=== PATIENT | female | born 1950 | race Caucasian/White ===

== ENCOUNTER 2016-12-24 21:46 | Inpatient (IN) ==
[2016-12-24] MEDS ORDERED: Ipratropium/Albuterol Neb 3 ML IH ONE (21:47)
[2016-12-24] MEDS ORDERED: methylPREDNISolone 125 MG/2 ML VIAL IVP ONE (21:47)
--- NOTE | 2016-12-24 21:51 | Emergency Department Note ---
Disposition Clinical Impression: Acute exacerbation of chronic obstructive airways disease Disposition: Admitted As Inpatient Condition: Good Referrals: Unassigned,Provider [Non-Partnered Physician] - Forms: ED Satisfaction Letter Time of Disposition: 23:18 SOB HPI - General Chief Complaint: ED Shortness of Breath/Dyspnea Stated Complaint: MARTHA Time Seen by Provider: 12/24/16 21:47 Source: patient, EMS Mode of arrival: EMS Limitations: no limitations Nursing Notes Reviewed: Yes Vital Signs Reviewed: Yes - History of Present Illness 66-year-old with a history COPD comes in complaining of increasing shortness of breath. Patient states symptoms began about 3 days ago. Patient states she has had a cough and congestion. Pt Subjective Complaint: shortness of breath, cough Onset (ago): day(s) (3) Context: recent illness Severity: moderate Consistency/Duration: constant Improves with: nothing Worsens with: nothing Known history of: COPD Associated symptoms: Reports: cough, wheezing Treatment prior to arrival: oxygen Cough present: Yes Cough Description: Involuntary Cough Frequency: Intermittent - Related Data Home Medications Medication Instructions Recorded Confirmed Gabapentin [Neurontin] 300 mg PO TID 04/27/15 07/28/15 Lisinopril [Zestril] 5 mg PO AD 04/27/15 07/28/15 Metformin [Glucophage] 1,000 mg PO BID 05/16/15 07/28/15 Previous Rx's Medication Instructions Recorded Ipratropium/Albuterol Neb [Duoneb] 3 ml IH Q6HR PRN #40 vial.neb 04/28/15 Budesonide/Formoterol 160/4.5 2 puff IH BIDR #5 inhaler 05/18/15 [Symbicort] Tiotropium [Spiriva] 18 mcg IH 0700 #30 capsule 05/18/15 GlipiZIDE XL (24 HR) [Glucotrol XL] 2.5 mg PO DAILY #30 tab.er.24 07/30/15 GuaiFENesin ER [Mucinex] 600 mg PO BID PRN #30 tbbp.12hr 07/30/15 Levofloxacin [Levaquin] 750 mg PO DAILY #7 tablet 07/30/15 predniSONE [PredniSONE] 10 mg PO DAILY #40 tablet 07/30/15 Guaifenesin [Mucinex] 600 mg PO BID PRN #30 tab.er.12h 08/16/15 Allergies Allergy/AdvReac Type Severity Reaction Status Date / Time No Known Allergies Allergy Verified 04/27/15 02:33 All systems ED: reviewed and negative except as stated. Constitutional: Denies: fever, chills, weakness, weight change Eyes: Denies: eye pain, eye discharge, vision change ENT ED: Denies: ear pain, throat pain, dental pain, hearing loss, epistaxis, congestion, dysphagia Cardiovascular: Denies: chest pain, palpitations, dyspnea on exertion, edema, syncope Respiratory: Reports: cough, dyspnea, wheezes. Denies: hemoptysis, stridor Gastrointestinal: Denies: abdominal pain, nausea, vomiting, diarrhea, constipation, hematemesis, melena, hematochezia Genitourinary: Denies: dysuria, frequency, hematuria, discharge Musculoskeletal: Denies: back pain, neck pain, arthralgia, myalgia Integumentary: Denies: rash, abrasion, lesions Neurological: Denies: headache, weakness, numbness, paresthesias, confusion, abnormal gait, vertigo Psychiatric: Denies: anxiety, depression, suicidal thoughts, homicidal thoughts , auditory hallucinations, visual hallucinations Endocrine: Denies: fatigue Hematological/Lymphatic: Denies: easy bleeding, easy bruising Allergic/Immunologic: Denies: facial swelling, urticaria Past Medical History - Past Medical History Medical history: Reports: COPD, diabetes, hyperlipidemia, hypertension, peripheral artery disease, renal disease, other Surgical history: Reports: , cataract, other Psychiatric history: Reports: no psych history - Social History Smoking Status: Former smoker (> 50 pack-year smoking history. Per patient, she has been quitted for almost 5 months.) Smokeless Tobacco Status: No Alcohol use: Reports: none Drug use: Reports: none Physical Exam - General Limitations: no limitations General appearance: alert, in no apparent distress - Head Head exam: atraumatic, normocephalic, normal inspection - Eye Eye exam: Present: normal appearance, PERRL, EOMI - ENT ENT exam: normal exam, normal oropharynx, mucous membranes moist - Neck Neck exam: Present: normal inspection, full ROM, trachea midline - Chest Chest inspection: Present: normal inspection, symmetric chest wall rise - Respiratory Respiratory exam: Present: wheezes, accessory muscle use - Cardiovascular Cardiovascular exam: Present: regular rate, normal rhythm, normal heart sounds - Abdominal Exam Abdominal exam: Present: soft, Non-Tender. Absent: tenderness, distention, guarding, rebound, rigidity - Extremities Exam Extremities exam: Present: normal inspection, full ROM. Absent: tenderness, pedal edema - Expanded Lower Extremity Exam Neurovascular/Tendon exam: Absent: motor deficit, sensory deficit, tendon deficit Gait: observed and normal - Back Exam Back exam: Present: normal inspection, full ROM. Absent: tenderness - Neurological Exam Neurological exam: Present: alert, oriented X3 - Psychiatric Psychiatric exam: Present: normal affect, normal mood - Skin Skin exam: Present: warm, dry, intact, normal color Course - Reevaluation(s) Reevaluation #1: 66-year-old with COPD who comes in with increasing shortness breath the last 3 days. Workup here chest x-ray showed nonammonia they were concerned with some pulmonary congestion. However the BNP was negative. Patient will be admitted for persistent symptoms. She is requiring oxygen to maintain her saturation she is not on oxygen at home. Time: 23:16 - Consultations Consultation #1: Discussed with , admit. Time: 23:17 Vital Signs Temperature 99.3 F 12/24/16 21:47 Pulse Rate 114 12/24/16 21:47 Respiratory Rate 22 12/24/16 21:47 Blood Pressure 148/72 12/24/16 21:47 O2 Sat by Pulse Oximetry 88 12/24/16 21:47 Temperature 99.3 F 12/24/16 21:47 Pulse Rate 109 12/24/16 22:20 Respiratory Rate 26 12/24/16 22:20 Blood Pressure 163/73 12/24/16 22:20 O2 Sat by Pulse Oximetry 97 12/24/16 22:20 Oxygen Delivery Oxygen Delivery Nasal Cannula Shortness of Breath/Dyspnea - Lab Data Lab results reviewed: Yes I reviewed the patient's lab results. Result diagrams: 12/24/16 22:12 12/24/16 22:12 Lab Results 12/24/16 12/24/16 12/24/16 Range/Units 22:12 22:12 22:12 WBC 9.0 (4.3-11.1) K/mcL RBC 5.00 H (3.82-4.97) M/mcL Hgb 14.1 (11.5-15.4) g/dL Hct 45.0 H (35.3-44.9) % MCV 90.0 (83.0-100.0) fL MCH 28.2 (28.0-33.3) pg MCHC 31.3 L (31.6-35.5) g/dL RDW 13.7 (11.5-14.5) % Plt Count 195 (140-400) K/mcL MPV 10.9 (9.4-12.4) fL Immature Gran % 0.3 (0-4) % Seg Neutrophils % 66.1 % Lymphocytes % 18.3 % Monocytes % 8.6 % Eosinophils % 6.1 % Basophils % 0.6 % Neutrophils # 5.9 (1.6-8.9) K/mcL Lymphocytes # 1.6 (0.6-4.6) K/mcL Monocytes # 0.8 (0.0-1.3) K/mcL Eosinophils # 0.6 (0.0-0.6) K/mcL Basophils # 0.1 (0.0-0.2) K/mcL Sodium 138 (136-145) mEq/L Potassium 4.5 (3.5-4.5) mEq/L Chloride 107 (98-109) mEq/L Carbon Dioxide 19 (19-29) mEq/L BUN 22 H (7-20) mg/dL Creatinine 0.98 (0.57-1.11) mg/dL Est GFR ( Amer) > 60 (> 60) Est GFR (Non-Af Amer) 57 L (> 60) BUN/Creatinine Ratio 22 (6-26) Glucose 134 H (70-99) mg/dL Calculated Osmolality 291 (280-300) Calcium 10.1 (8.6-10.8) mg/dL Troponin I 0.01 (0-0.03) ng/mL B-Natriuretic Peptide (0-100) pg/mL 12/24/16 Range/Units 22:12 WBC (4.3-11.1) K/mcL RBC (3.82-4.97) M/mcL Hgb (11.5-15.4) g/dL Hct (35.3-44.9) % MCV (83.0-100.0) fL MCH (28.0-33.3) pg MCHC (31.6-35.5) g/dL RDW (11.5-14.5) % Plt Count (140-400) K/mcL MPV (9.4-12.4) fL Immature Gran % (0-4) % Seg Neutrophils % % Lymphocytes % % Monocytes % % Eosinophils % % Basophils % % Neutrophils # (1.6-8.9) K/mcL Lymphocytes # (0.6-4.6) K/mcL Monocytes # (0.0-1.3) K/mcL Eosinophils # (0.0-0.6) K/mcL Basophils # (0.0-0.2) K/mcL Sodium (136-145) mEq/L Potassium (3.5-4.5) mEq/L Chloride (98-109) mEq/L Carbon Dioxide (19-29) mEq/L BUN (7-20) mg/dL Creatinine (0.57-1.11) mg/dL Est GFR ( Amer) (> 60) Est GFR (Non-Af Amer) (> 60) BUN/Creatinine Ratio (6-26) Glucose (70-99) mg/dL Calculated Osmolality (280-300) Calcium (8.6-10.8) mg/dL Troponin I (0-0.03) ng/mL B-Natriuretic Peptide < 10 (0-100) pg/mL - Radiology Data Radiology results reviewed: Yes I reviewed the patient's radiology results. Chest X-Ray 12/24/16 21:47 IMPRESSION: 1. Pulmonary vascular congestion. 2. Trace bilateral effusions. D/ / Dread Mathew MD / Dread Mathew MD Interpreting Provider: Dread Mathew MD - EKG Data EKG attestation: Yes I reviewed and interpreted this EKG. EKG shows normal: Reports: sinus rhythm Rate: Reports: tachycardia Rhythm: Reports: NSR Interpretation: Reports: no acute changes
[2016-12-24 22:20] LABS: Basophils # 0.1 K/mcL (0.0-0.2); Basophils % 0.6 %; Eosinophils # 0.6 K/mcL (0.0-0.6); Eosinophils % 6.1 %; Hemoglobin 14.1 g/dL (11.5-15.4); Immature Granulocytes % 0.3 % (0-4); Lymphocytes # 1.6 K/mcL (0.6-4.6); Lymphocytes % 18.3 %; Mean Corpuscular HGB Conc 31.3 g/dL (31.6-35.5); Mean Corpuscular Hemoglobin 28.2 pg (28.0-33.3); Mean Platelet Volume 10.9 fL (9.4-12.4); Monocytes # 0.8 K/mcL (0.0-1.3); Monocytes % 8.6 %; Neutrophils # 5.9 K/mcL (1.6-8.9); Platelet Count 195 K/mcL (140-400); Red Cell Distribution Width 13.7 % (11.5-14.5); Segmented Neutrophils % 66.1 %
[2016-12-24 22:32] LABS: BUN/Creatinine Ratio 22 (6-26); Blood Urea Nitrogen 22 mg/dL (7-20); Calcium 10.1 mg/dL (8.6-10.8); Carbon Dioxide 19 mEq/L (19-29); Chloride 107 mEq/L (98-109); Glucose 134 mg/dL (70-99); Osmolality,Calculated 291 (280-300); Potassium 4.5 mEq/L (3.5-4.5); Sodium 138 mEq/L (136-145); eGFR For African Americans > 60 (> 60); eGFR For Non-African Americans 57 (> 60)
[2016-12-25] MEDS ORDERED: Naloxone 0.4 MG/ML INJ IVP PRN (02:38)
[2016-12-25] MEDS ORDERED: Ipratropium/Albuterol Neb 3 ML IH ONE (02:40)
[2016-12-25] MEDS ORDERED: Dextrose Gel 15 GM PO PRN ×2 (02:42)
[2016-12-25] MEDS ORDERED: *HR* Dextrose 50 % in Water (Syg) 50 ML SYRINGE IVP PRN (02:42)
[2016-12-25] MEDS ORDERED: D5% in Water 1,000 ML IVC PRN (02:42)
--- NOTE | 2016-12-25 02:46 | Internal Med History&Physical ---
Date of Encounter: 12/25/16 Time of Encounter: 02:00 Assessment and Plan (1) Acute exacerbation of chronic obstructive airways disease Current visit: Yes Status: Acute Treat with Solu-Medrol, levofloxacin, Duonebs and Mucinex (2) Acute respiratory failure with hypoxemia Current visit: Yes Status: Acute Likely due to acute exacerbation of COPD. Supplement oxygen and treat COPD exacerbation. Patient will need resting and walking pulse oximetry prior to discharge. (3) Pulmonary vascular congestion Current visit: Yes Status: Acute Reported on chest x-ray. BNP is not elevated. Will obtain echocardiogram (4) HTN (hypertension) Current visit: Yes Status: Chronic Continue home medications Qualifiers: Hypertension type: essential hypertension Qualified Code(s): I10 - Essential (primary) hypertension (5) Type 2 diabetes mellitus Current visit: Yes Status: Chronic Hold metformin. Start sliding scale insulin. 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 Does not want nicotine patches. Advised smoking cessation Internal Medicine - H&P: HPI Chief complaint: Shortness of breath Admitted From: Emergency Dept Plans for Post Hospital Care: Home History of present illness: Ms. Gavin is a 66 year old female with Past medical history significant for COPD and diabetes presents with three-day history of worsening shortness of breath. Prior to Presentation, she was short of breath at rest and on talking. She reports cough with greenish expectation. No hemoptysis. No chest pain, fever, chills, nausea, vomiting, abdominal pain, dysuria, hematuria or bowel problems. She was evaluated in the emergency department and was thought to have acute exacerbation of COPD and acute respiratory failure requiring oxygen ( pulse ox 88% on room air in the ER). She is admitted to the hospitalist service for further workup and management. Past Med Surg Social Fam HX - Past Medical History Medical history: COPD, diabetes, hyperlipidemia, hypertension, peripheral artery disease, renal disease, other Psychiatric history: no psych history - Past Surgical History Surgical History: , cataract, other - Social History Smoking Status: Current some day smoker Packs per day: 2 cigarettes Smokeless Tobacco Status: No Alcohol use: none Drug use: none - Family History Father Adopted: No Family Member Ethnicity: Non- Living Status: Age at : 45 Cause of : [place] Hx Family Cardiac Disorders: Yes ([place] at age 45) Hx Family Respiratory Disorders: Yes Hx Family Cancer: Yes Hx Family GI Disorders: No Hx Family Endocrine Disorder: Yes Hx Family Neuromuscular Disorders: No Hx Family Neurologic Disorders: No Hx Family HEENT Disorders: No Hx Family Autoimmune Disorders: No Brother Age at : 65 Cause of : [place] Hx Family Cardiac Disorders: Yes (CABG at age 52) Internal Medicine - H&P: Meds Gabapentin [Neurontin] 300 mg PO TID 04/27/15 [History] Lisinopril [Zestril] 5 mg PO AD 04/27/15 [History] Ipratropium/Albuterol Neb [Duoneb] 3 ml IH Q6HR PRN #40 vial.neb 04/28/15 [Rx] Metformin [Glucophage] 1,000 mg PO BID 05/16/15 [History] Budesonide/Formoterol 160/4.5 [Symbicort] 2 puff IH BIDR #5 inhaler 05/18/15 [Rx ] Allergies No Known Allergies Allergy (Verified 04/27/15 02:33) All Systems PM: A 10-system review of systems was performed and is negative for pertinent findings except as documented above in the HPI. - Constitutional Vitals: Temp Pulse Resp BP Pulse Ox 97.7 F 111 20 113/75 90 12/25/16 01:11 12/25/16 01:11 12/25/16 01:11 12/25/16 01:11 12/25/16 01:11 Exam: General: Not in acute distress at the time of my evaluation HEENT: Oral mucosa is moist. No conjunctival palor or scleral icterus Neck: No obvious neck swellings Lungs: Bilateral wheeze present Cardiac: Regular rate and rhythm. No significant murmurs Abdomen: Soft, non tender. Bowel sounds present Genitourinary: No ramires catheter Neurological: Alert and oriented. No gross localizing deficits Psych: Not aggressive or agitated Extremities: no significant leg edema Skin: No generalized rash Internal Med - H&P Results - Labs CBC & Chem 7: 12/24/16 22:12 12/24/16 22:12 - EKG Data -: EKG Interpreted by Myself EKG shows normal: sinus rhythm Rate: tachycardia - Impressions ITS Impressions Chest X-Ray 12/24/16 21:47 IMPRESSION: 1. Pulmonary vascular congestion. 2. Trace bilateral effusions. D/ / Dread Mathew MD / Dread Mathew MD Interpreting Provider: Dread Mathwe MD
[2016-12-25] MEDS: levoFLOXacin 750 MG TABLET PO SCH (03:20)
[2016-12-25] MEDS: Ipratropium/Albuterol Neb 3 ML IH SCH ×4 (04:05→22:22)
[2016-12-25] MEDS: *HR* Enoxaparin 40 MG/0.4 ML SYRINGE SQ SCH (05:53)
[2016-12-25] MEDS ORDERED: Furosemide 20 MG/2 ML VIAL IVP ONE (06:00)
[2016-12-25] MEDS: MethylPREDNISolone 40 MG/ML VIAL IVP SCH ×2 (08:29→17:25)
[2016-12-25] MEDS: Insulin LISPRO 300 UNITS/3 ML VIAL SQ SCH ×4 (08:29→20:23)
--- NOTE | 2016-12-25 10:12 | Event Note ---
<Dread Lugo G - Last Filed: 12/25/16 13:30> Date of Encounter: 12/25/16 Time of Encounter: 10:07 Patient seen and examined at [facility]. Admitted overnight for COPD exacerbation. Patient reports feeling slightly better this morning. Still having dyspnea, particularly when lying flat. Reports non-productive cough. VSS, O2 saturation 94% on 2L No acute distress Heart RRR no m/r/g Lungs diffuse wheezes, no rales or rhonci COPD exacerbation: Mild improvement since admission, continue scheduled duonebs , IV steroids, abx. Add symbicort. Patient reports orthopnea, no clinical evidence of HF exacerbation. Patient received one dose of lasix with minimal change. Echo pending <Brandon Connor P - Last Filed: 12/25/16 17:37> Date of Encounter: 12/25/16 I examined this patient and my medical decision-making was reviewed with the [employer] MODEL/PA/Advanced Practice Nurse/Resident Physician. I agree with the documented findings, disposition and treatment plan as described except to the extent set forth below.
--- NOTE | 2016-12-25 16:24 | Electrocardiograph Report ---
[place] [id number] Test Date: 2016-12-24 Pat Name: Gilberto Gavin Department: 102 Room: 3B Gender: F Differential Repairer: Sebastián : 1950 Requested By: Travon Chiu Order Number: [id number] Reading MD: Shalonda Chua Measurements Intervals [place] Rate: 117 P: 63 NC: 124 QRS: 65 QRSD: 90 T: 66 QT: 305 QTc: 374 Interpretive Statements SINUS TACHYCARDIA ABNORMAL RHYTHM ECG Electronically Signed On 12-25-2016 16:22:54 EDT by Shalonda Chua
[2016-12-25] MEDS: Gabapentin 300 MG CAPSULE PO SCH (21:52)
[2016-12-25] MEDS: Budesonide/Formoterol 160/4.5 MDI IH SCH (22:23)
[2016-12-26] MEDS: MethylPREDNISolone 40 MG/ML VIAL IVP SCH ×3 (00:30→17:48)
[2016-12-26] MEDS: Ipratropium/Albuterol Neb 3 ML IH SCH ×4 (04:13→22:47)
[2016-12-26] MEDS: *HR* Enoxaparin 40 MG/0.4 ML SYRINGE SQ SCH (05:26)
[2016-12-26 07:15] LABS: Basophils % 0.2 %; Hematocrit 42.5 % (35.3-44.9); Hemoglobin 13.6 g/dL (11.5-15.4); Immature Granulocytes % 0.5 % (0-4); Lymphocytes # 0.7 K/mcL (0.6-4.6); Lymphocytes % 12.4 %; Mean Corpuscular Hemoglobin 28.4 pg (28.0-33.3); Mean Corpuscular Volume 88.7 fL (83.0-100.0); Mean Platelet Volume 11.4 fL (9.4-12.4); Monocytes # 0.2 K/mcL (0.0-1.3); Monocytes % 4.1 %; Neutrophils # 4.6 K/mcL (1.6-8.9); Platelet Count 196 K/mcL (140-400); Red Blood Count 4.79 M/mcL (3.82-4.97); Red Cell Distribution Width 13.3 % (11.5-14.5); Segmented Neutrophils % 82.8 %
[2016-12-26 07:30] LABS: BUN/Creatinine Ratio 31 (6-26); Blood Urea Nitrogen 31 mg/dL (7-20); Calcium 9.9 mg/dL (8.6-10.8); Carbon Dioxide 22 mEq/L (19-29); Chloride 105 mEq/L (98-109); Glucose 208 mg/dL (70-99); Osmolality,Calculated 299 (280-300); Potassium 4.7 mEq/L (3.5-4.5); Sodium 138 mEq/L (136-145); eGFR For African Americans > 60 (> 60); eGFR For Non-African Americans 56 (> 60)
[2016-12-26] MEDS: levoFLOXacin 750 MG TABLET PO SCH (09:07)
[2016-12-26] MEDS: Gabapentin 300 MG CAPSULE PO SCH ×2 (09:08→21:40)
[2016-12-26] MEDS: Insulin LISPRO 300 UNITS/3 ML VIAL SQ SCH ×5 (09:08→21:40)
[2016-12-26] MEDS: Budesonide/Formoterol 160/4.5 MDI IH SCH ×2 (10:53→22:47)
--- NOTE | 2016-12-26 16:22 | Internal Med Progress Note ---
Date of Encounter: 12/26/16 Time of Encounter: 09:15 - Assessment and plan (1) Acute exacerbation of chronic obstructive airways disease Current Visit: No Status: Resolved Assessment and plan: Improving, continue Duonebs, Symbicort, Solumedrol, Levaquin (2) Acute respiratory failure with hypoxemia Current Visit: Yes Status: Acute Assessment and plan: secondary to COPD exacerbation, improving (3) HTN (hypertension) Current Visit: Yes Status: Chronic Assessment and plan: controlled, continue home meds Qualifiers: Hypertension type: essential hypertension Qualified Code(s): I10 - Essential (primary) hypertension (4) Tobacco abuse Current Visit: Yes Status: Chronic (5) Type 2 diabetes mellitus Current Visit: Yes Status: Chronic Assessment and plan: hyperglycemia, sliding scale Qualifiers: Diabetes mellitus complication status: without complication Diabetes mellitus fdc insulin use: without intermediate 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 Not in any distress. Tolerating oral diet. No fever. Feels better. Denies chest pain or shortness of breath. No other acute events or complaints. - Constitutional Vitals: Temp Pulse Resp BP Pulse Ox 98.2 F 86 18 127/65 96 12/26/16 15:49 12/26/16 15:49 12/26/16 15:49 12/26/16 15:49 12/26/16 15:49 General appearance: Present: cooperative, A&O X 3, no acute distress, answers questions appropriately - Head Head exam: Present: atraumatic - Neck Neck exam general surgery: Present: supple - Respiratory Respiratory exam: Present: wheezes (b/l extensive). Absent: rhonchi Additional comments: good air entry b/l - Cardiovascular Cardiovascular exam: Present: RRR, +S1, +S2 - GI/Abdominal GI/Abdominal exam: Present: soft. Absent: guarding, tenderness - Neurological Exam Neurological exam: Present: alert, oriented X3, no focal deficits Internal Medicine: Result - Labs CBC & Chem 7: 12/26/16 06:18 12/26/16 06:18 Labs: Short CBC 12/26/16 Range/Units 06:18 WBC 5.6 (4.3-11.1) K/mcL Hgb 13.6 (11.5-15.4) g/dL Hct 42.5 (35.3-44.9) % Plt Count 196 (140-400) K/mcL Neutrophils # 4.6 (1.6-8.9) K/mcL BMP 12/26/16 06:18 Sodium 138 Potassium 4.7 H Chloride 105 Carbon Dioxide 22 BUN 31 H Creatinine 0.99 Glucose 208 H Calcium 9.9 Consult Discharge Plan - Plan Referrals: Leroy Roman MD [Primary Care Provider] -
[2016-12-27] MEDS: MethylPREDNISolone 40 MG/ML VIAL IVP SCH ×2 (00:34→09:21)
[2016-12-27] MEDS: Ipratropium/Albuterol Neb 3 ML IH SCH (04:18)
[2016-12-27 06:30] LABS: Basophils % 0.1 %; Hematocrit 40.8 % (35.3-44.9); Hemoglobin 13.3 g/dL (11.5-15.4); Immature Granulocytes % 0.7 % (0-4); Lymphocytes % 13.8 %; Mean Corpuscular HGB Conc 32.6 g/dL (31.6-35.5); Mean Corpuscular Hemoglobin 28.7 pg (28.0-33.3); Mean Corpuscular Volume 88.1 fL (83.0-100.0); Mean Platelet Volume 11.3 fL (9.4-12.4); Monocytes # 0.2 K/mcL (0.0-1.3); Monocytes % 3.2 %; Neutrophils # 5.9 K/mcL (1.6-8.9); Platelet Count 214 K/mcL (140-400); Red Blood Count 4.63 M/mcL (3.82-4.97); Red Cell Distribution Width 13.6 % (11.5-14.5); Segmented Neutrophils % 82.2 %
[2016-12-27 06:50] LABS: BUN/Creatinine Ratio 32 (6-26); Blood Urea Nitrogen 34 mg/dL (7-20); Carbon Dioxide 22 mEq/L (19-29); Chloride 107 mEq/L (98-109); Glucose 192 mg/dL (70-99); Osmolality,Calculated 301 (280-300); Potassium 4.8 mEq/L (3.5-4.5); Sodium 139 mEq/L (136-145); eGFR For African Americans > 60 (> 60); eGFR For Non-African Americans 52 (> 60)
[2016-12-27] MEDS: *HR* Enoxaparin 40 MG/0.4 ML SYRINGE SQ SCH (07:34)
[2016-12-27 08:17] VITALS: BP 151/71
--- NOTE | 2016-12-27 08:21 | Discharge Summary ---
<Dread Lugo - Last Filed: 12/27/16 08:56> Date of Encounter: 12/27/16 Time of Encounter: 08:16 - Discharge Diagnosis (1) Acute exacerbation of chronic obstructive airways disease Priority: Primary Status: Acute (2) Acute respiratory failure with hypoxemia Priority: Primary Status: Resolved (3) HTN (hypertension) Priority: Secondary Status: Chronic Qualifiers: Hypertension type: essential hypertension Qualified Code(s): I10 - Essential (primary) hypertension (4) Type 2 diabetes mellitus Priority: Secondary Status: Chronic Qualifiers: Diabetes mellitus complication status: without complication Diabetes mellitus buttermaker insulin use: without snf use Qualified Code(s): E11.9 - Type 2 diabetes mellitus without complications - Discharge Medications Prescriptions: levoFLOXacin [Levofloxacin] 750 mg PO DAILY #3 tablet predniSONE [PredniSONE] See Taper PO DAILY #30 tablet Home Medications: Gabapentin [Neurontin] 600 mg PO BID 04/27/15 [History] Lisinopril [Zestril] 5 mg PO AD 04/27/15 [History] Ipratropium/Albuterol Neb [Duoneb] 3 ml IH Q6HR PRN #40 vial.neb 04/28/15 [Rx] Metformin [Glucophage] 1,000 mg PO BID 05/16/15 [History] Budesonide/Formoterol 160/4.5 [Symbicort] 2 puff IH BIDR #5 inhaler 05/18/15 [Rx ] Albuterol Neb [AccuNeb] 1.25 mg IH QID PRN 12/25/16 [History] Atorvastatin Calcium [Lipitor] 20 mg PO HS 12/25/16 [History] Roflumilast [Daliresp] 500 mcg PO DAILY 12/25/16 [History] levoFLOXacin [Levofloxacin] 750 mg PO DAILY #3 tablet 12/27/16 [Rx] predniSONE [PredniSONE] See Taper PO DAILY #30 tablet 12/27/16 [Rx] Allergies/Adverse Reactions: Allergies No Known Allergies Allergy (Verified 04/27/15 02:33) Procedures/tests Complete & Pending: Procedures Performed prior 72 hours Category Date Time Status EV echocardiogram Routine Y 12/25/16 02:49 Completed Date of admission: 12/25/16 02:38 Primary care physician: Leroy Roman MD Discharging clinician: Dread Lugo Anticipated date of discharge: 12/27/16 - Patient Status Disposition: Home, Self-Care Condition: Good Functional capacity at discharge: independent ambulation Overall status at discharge: patient is progressing back to baseline - Discharge Instructions Instructions: Diabetes Mellitus Type 2 in Adults (DC), Chronic Obstructive Pulmonary Disease (DC) Follow Up With: Leroy au MD [Primary Care Provider] - 01/08/17 11:00 am Additional Instructions: Please follow up with your primary care physician as scheduled. Please resume your home medications. Please take your antibiotic, levofloxacin, until gone. Please taper off her steroids, prednisone, as directed. We would highly recommend that you quit smoking. Please return for any new or worsening symptoms. - Diet and Activity Activity: increase activity as tolerated Diet: advance to your usual diet Interval History: Patient seen and examined at bedside. Patient states she feels back to normal today. Denies any shortness of breath, cough. Patient has not worn oxygen for the last 24 hours. Hospital course: Ms. Gavin is a 66 year old female with history of COPD, type 2 diabetes presents with shortness of breath. Patient also had a cough. Patient was exquisitely wheezy and tight on exam and deemed to be in a COPD exacerbation. Patient was treated with antibiotics, IV steroids, bronchodilators. Patient initially required oxygen supplementation but improved greatly over her hospital course and did not require oxygenation in the past 24 hours prior to discharge. Patient will be discharged home in stable condition. - Time Spent with Patient Total time spent providing and/or coordinating discharge services: - Constitutional Vitals: Temp Pulse Resp BP Pulse Ox 98 F 70 16 122/68 92 12/27/16 03:08 12/27/16 03:08 12/27/16 04:21 12/27/16 03:08 12/27/16 04:21 General appearance: Present: cooperative, A&O X 3, no acute distress, answers questions appropriately - Respiratory Respiratory exam: Present: wheezes (Diffuse). Absent: rales, respiratory distress, rhonchi, tachypnea - Cardiovascular Cardiovascular exam: Present: RRR. Absent: gallop, rubs, systolic murmur - GI/Abdominal GI/Abdominal exam: Present: normal bowel sounds, soft. Absent: distended, tenderness - Extremities Exam Extremities exam: Present: warm. Absent: pedal edema, tenderness - Neurological Exam Neurological exam: Present: alert, CN II-XII intact, oriented X3, no focal deficits <Av Fitzgerald - Last Filed: 12/27/16 14:56> Date of Encounter: 12/27/16 - Discharge Diagnosis (1) Acute respiratory failure with hypoxemia Status: Resolved (2) Acute exacerbation of chronic obstructive airways disease Status: Acute (3) HTN (hypertension) Status: Chronic Qualifiers: Hypertension type: essential hypertension Qualified Code(s): I10 - Essential (primary) hypertension (4) Type 2 diabetes mellitus Status: Chronic Qualifiers: Diabetes mellitus complication status: with hyperglycemia Diabetes mellitus buttermaker insulin use: without buttermaker use Qualified Code(s): E11.65 - Type 2 diabetes mellitus with hyperglycemia (5) HLD (hyperlipidemia) Priority: Secondary Status: Chronic Qualifiers: Hyperlipidemia type: mixed hyperlipidemia Qualified Code(s): E78.2 - Mixed hyperlipidemia (6) CKD (chronic kidney disease), stage II Priority: Secondary Status: Chronic (7) Tobacco abuse Priority: Secondary Status: Chronic Procedures/tests Complete & Pending: Procedures Performed prior 72 hours Category Date Time Status EV echocardiogram Routine Y 12/25/16 02:49 Completed Date of admission: 12/25/16 02:38 Primary care physician: Leroy Roman MD Hospital course: Ms. Gavin is a 66 year old female - Time Spent with Patient Total time spent providing and/or coordinating discharge services: 38min - Constitutional Vitals: Temp Pulse Resp BP Pulse Ox 98.1 F 78 14 151/71 92 12/27/16 08:12 12/27/16 08:12 12/27/16 08:12 12/27/16 08:12 12/27/16 08:12 - Attending Attestation I examined this patient and my medical decision-making was reviewed with the Resident Physician on 12/27/16. I agree with the documented findings, disposition and treatment plan as described except to the extent set forth below. Ms. Gavin is doing better today. She is off oxygen and tolerating PO meds. She has been up and around without difficulty. She is afebrile with stable vitals. Exam Alert. Comfortable Heart reg Scant end exp wheeze Plan D/C home today.
[2016-12-27] MEDS: Gabapentin 300 MG CAPSULE PO SCH (09:21)
[2016-12-27] MEDS: levoFLOXacin 750 MG TABLET PO SCH (09:21)
== END 2016-12-27 10:40 | disposition home or self-care (01) | DRG 190 ==
LOC: 3BNU 21:46 → EMEROO 21:46 → 3BNU 12-25 00:53 → SUATTDRO 12-25 02:38 → 2ANU 12-27 02:04
PROVIDERS: ADMIT Internal Medicine; ATTEND Internal Medicine

== ENCOUNTER 2017-06-09 22:08 | Observation (INO) ==
[2017-06-09] MEDS ORDERED: predniSONE 20 MG TABLET PO ONE (22:16)
[2017-06-09] MEDS ORDERED: Ipratropium/Albuterol Neb 3 ML IH ONE (22:16)
[2017-06-09 22:23] LABS: Basophils % 0.4 %; Eosinophils # 0.4 K/mcL (0.0-0.6); Eosinophils % 3.4 %; Hematocrit 42.5 % (35.3-44.9); Hemoglobin 13.8 g/dL (11.5-15.4); Immature Granulocytes % 0.4 % (0-4); Mean Corpuscular HGB Conc 32.5 g/dL (31.6-35.5); Mean Corpuscular Hemoglobin 29.1 pg (28.0-33.3); Mean Corpuscular Volume 89.7 fL (83.0-100.0); Mean Platelet Volume 11.5 fL (9.4-12.4); Monocytes # 0.6 K/mcL (0.0-1.3); Monocytes % 5.5 %; Platelet Count 197 K/mcL (140-400); Red Blood Count 4.74 M/mcL (3.82-4.97); Red Cell Distribution Width 13.7 % (11.5-14.5); Segmented Neutrophils % 81.3 %
[2017-06-09 22:38] LABS: BUN/Creatinine Ratio 14 (6-26); Blood Urea Nitrogen 13 mg/dL (7-20); Calcium 10.2 mg/dL (8.6-10.8); Carbon Dioxide 21 mEq/L (19-29); Chloride 108 mEq/L (98-109); Glucose 159 mg/dL (70-99); Osmolality,Calculated 291 (280-300); Potassium 4.3 mEq/L (3.5-4.5); Sodium 139 mEq/L (136-145); eGFR For African Americans > 60 (> 60); eGFR For Non-African Americans > 60 (> 60)
--- NOTE | 2017-06-09 22:40 | Emergency Department Note ---
Disposition Clinical Impression: COPD exacerbation Disposition: Admitted As Inpatient Condition: Fair Time of Disposition: 00:10 SOB HPI - General Chief Complaint: ED Shortness of Breath/Dyspnea Stated Complaint: alex Nursing Notes Reviewed: Yes Vital Signs Reviewed: Yes - History of Present Illness 66-year-old female presents to the emergency department with what she thinks is an exacerbation of her COPD. Patient's worsening cough with production of green sputum over the last week. Patient stated he started having more shortness of breath this morning. The patient is not currently on any oxygen at home. - Related Data Home Medications Medication Instructions Recorded Confirmed Gabapentin [Neurontin] 600 mg PO BID 04/27/15 12/25/16 Lisinopril [Zestril] 5 mg PO AD 04/27/15 12/25/16 Metformin [Glucophage] 1,000 mg PO BID 05/16/15 12/25/16 Albuterol Neb [AccuNeb] 1.25 mg IH QID PRN 12/25/16 12/25/16 Atorvastatin Calcium [Lipitor] 20 mg PO HS 12/25/16 12/25/16 Roflumilast [Daliresp] 500 mcg PO DAILY 12/25/16 12/25/16 Previous Rx's Medication Instructions Recorded Ipratropium/Albuterol Neb [Duoneb] 3 ml IH Q6HR PRN #40 vial.neb 04/28/15 Budesonide/Formoterol 160/4.5 2 puff IH BIDR #5 inhaler 05/18/15 [Symbicort] levoFLOXacin [Levaquin] 750 mg PO DAILY #3 tablet 12/27/16 predniSONE [PredniSONE] See Taper PO DAILY #30 tablet 12/27/16 Azithromycin [Azithromycin 6-Tab 250 mg PO PER PKG DI #6 tab 04/10/17 Pack] PredniSONE [Deltasone] 20 mg PO DAILY #10 tablet 04/10/17 Allergies Allergy/AdvReac Type Severity Reaction Status Date / Time No Known Allergies Allergy Verified 04/27/15 02:33 All systems ED: reviewed and negative except as stated. Review of Systems: As Per HPI Constitutional: Denies: fever Cardiovascular: Reports: chest pain Respiratory: Reports: cough, dyspnea Gastrointestinal: Denies: abdominal pain Past Medical History - Past Medical History Medical history: Reports: COPD, diabetes, hyperlipidemia, hypertension, peripheral artery disease, renal disease, other Surgical history: Reports: , cataract, other Psychiatric history: Reports: no psych history - Social History Smoking Status: Current some day smoker Smokeless Tobacco Status: No Alcohol use: Reports: none Drug use: Reports: none Physical Exam General: unkempt 66-year-old female 3 L of oxygen via nasal cannula, with a productive wet cough Head: autraumatic, EOMI, no conjuncitval pallor, no scleral icterus, Mouth: oral mucous membranes moist Neck: neck soft, trachea midline Chest:: Equal chest wall rise Lungs: Wheezes and rhonchi throughout, mild respiratory distress Heart: normal heart sounds, normal rate and rhythm, Abdomen: soft, non-tender, no rigidity, no guarding, no rebdound tenderness Lower Extremities: no pedal edema, calves non-tender Integumentary: Skin warm, dry, and intact Neuro: Alert Psych: normal affect, normal mood - General General appearance: alert Course Vital Signs Temperature 98.2 F 06/09/17 22:09 Pulse Rate 121 06/09/17 22:09 Respiratory Rate 22 06/09/17 22:09 Blood Pressure 99/65 06/09/17 22:09 O2 Sat by Pulse Oximetry 94 06/09/17 22:09 Temperature 98.2 F 06/09/17 22:09 Pulse Rate 121 06/09/17 22:09 Respiratory Rate 22 06/09/17 22:20 Blood Pressure 99/65 06/09/17 22:09 O2 Sat by Pulse Oximetry 94 06/09/17 22:20 Oxygen Delivery Oxygen Delivery Nasal Cannula Shortness of Breath/Dyspnea - MDM Narrative Medical decision making narrative: 66-year-old female presents to the emergency department with worsening cough, sputum production, hypoxic on room air. At this time, I will give the patient DuoNeb's, prednisone as I believe she has a COPD exacerbation. Chest X-Ray 06/09/17 22:16 IMPRESSION: Negative portable chest. D/ / Marcelo Gonzalez MD / Marcelo Gonzalez MD Interpreting Provider: Marcelo Gonzalez MD Vital Signs Temperature 98.2 F 06/09/17 22:09 Pulse Rate 121 06/09/17 22:09 Respiratory Rate 22 06/09/17 22:09 Blood Pressure 99/65 06/09/17 22:09 O2 Sat by Pulse Oximetry 94 06/09/17 22:09 Temperature 98.2 F 06/09/17 22:09 Pulse Rate 121 06/09/17 22:09 Respiratory Rate 22 06/09/17 22:20 Blood Pressure 99/65 06/09/17 22:09 O2 Sat by Pulse Oximetry 94 06/09/17 22:20 Oxygen Delivery Oxygen Delivery Nasal Cannula We are doing a chest x-ray, EKG, troponin as well. Chest x-ray does not reveal any evidence of pneumonia. However, due to patient's increasing sputum production, we will either may be a source of bacterial infection. I will give this patient IV Levaquin. Admission was discussed with the patient bedside as she has a new requirement for oxygen, and she does not have any oxygen at home. Admission was discussed with the hospitalist and they agree with the plan. Patient stated that she was feeling a lot better after administration of steroids and DuoNeb's. Patient was tachycardic on arrival, but she had just been administered albuterol. I do not think this is a pulmonary embolus as clinically, the patient had diffuse wheezes and rhonchi throughout, with increasing sputum production and patient specifically stated this feels like a COPD exacerbation for her. - Lab Data Result diagrams: 06/09/17 22:13 06/09/17 22:13 Lab Results 06/09/17 06/09/17 06/09/17 Range/Units 22:13 22:13 22:13 WBC 11.0 (4.3-11.1) K/mcL RBC 4.74 (3.82-4.97) M/mcL Hgb 13.8 (11.5-15.4) g/dL Hct 42.5 (35.3-44.9) % MCV 89.7 (83.0-100.0) fL MCH 29.1 (28.0-33.3) pg MCHC 32.5 (31.6-35.5) g/dL RDW 13.7 (11.5-14.5) % Plt Count 197 (140-400) K/mcL MPV 11.5 (9.4-12.4) fL Immature Gran % 0.4 (0-4) % Seg Neutrophils % 81.3 % Lymphocytes % 9.0 % Monocytes % 5.5 % Eosinophils % 3.4 % Basophils % 0.4 % Neutrophils # 9.0 H (1.6-8.9) K/mcL Lymphocytes # 1.0 (0.6-4.6) K/mcL Monocytes # 0.6 (0.0-1.3) K/mcL Eosinophils # 0.4 (0.0-0.6) K/mcL Basophils # 0.0 (0.0-0.2) K/mcL Sodium 139 (136-145) mEq/L Potassium 4.3 (3.5-4.5) mEq/L Chloride 108 (98-109) mEq/L Carbon Dioxide 21 (19-29) mEq/L BUN 13 (7-20) mg/dL Creatinine 0.92 (0.57-1.11) mg/dL Est GFR ( Amer) > 60 (> 60) Est GFR (Non-Af Amer) > 60 (> 60) BUN/Creatinine Ratio 14 (6-26) Glucose 159 H (70-99) mg/dL Calculated Osmolality 291 (280-300) Calcium 10.2 (8.6-10.8) mg/dL Troponin I 0.02 (0-0.03) ng/mL Attestation Statement - Attestation Attestation: I examined this patient and my medical decision-making was reviewed with the Resident Physician. I agree with the documented findings, disposition and treatment plan as described except to the extent set forth below. Patient to ED with difficulty in breathing. Wheezing. Onset this morning. On hypoxic by EMS. On examination she is in no distress. She does have expiratory wheezing. Plan. Cardiac workup. Nebs and steroids. Requiring oxygen. Likely admission.
[2017-06-09] MEDS ORDERED: Levofloxacin 750 MG/150 ML 750 MG/150 ML BAG IVPB ONE (23:53)
[2017-06-10] MEDS ORDERED: 0.9 % Sodium Chloride 1,000 ML IVC ONE (00:14)
[2017-06-10] MEDS ORDERED: Magnesium Sulfate 2 GM in D5% in Water 100 ML IVPB ONE (00:51)
[2017-06-10] MEDS: Ipratropium/Albuterol Neb 3 ML IH SCH ×7 (01:47→23:34)
[2017-06-10] MEDS ORDERED: Albuterol 2.5 MG/3 ML NEBULIZER IH PRN (02:01)
[2017-06-10] MEDS ORDERED: Ondansetron 4 MG/2 ML VIAL IVP PRN (02:01)
[2017-06-10] MEDS ORDERED: Naloxone 0.4 MG/ML INJ IVP PRN (02:01)
[2017-06-10] MEDS ORDERED: *HR* HYDROcodone/Acet 5/325 mg TABLET PO PRN (02:01)
--- NOTE | 2017-06-10 02:21 | Internal Med History&Physical ---
<Gamaliel Matos - Last Filed: 06/10/17 02:28> Date of Encounter: 06/10/17 Time of Encounter: 02:13 Assessment and Plan (1) Acute respiratory failure with hypoxemia Current visit: Yes Status: Acute - COPD exacerbation likely etiology. - Management as below for COPD exacerbation - Will obtain echo and trend troponins to rule out cardiac etiology. - SW consult for possible home O2. (2) Acute exacerbation of chronic obstructive airways disease Current visit: Yes Status: Acute - Likely etiology of acute SOB with hypoxia. - Reports new onset cough with sputum production. - CXR in ED shows no evidence of opacity to suggest PNA or pulmonary edema. - Methylprednisolone 60mg q6, Duonebs, azithromycin - Supplemental O2 as needed. (3) HTN (hypertension) Current visit: Yes Status: Chronic - Well controlled. Will continue home meds. Qualifiers: Hypertension type: essential hypertension Qualified Code(s): I10 - Essential (primary) hypertension (4) HLD (hyperlipidemia) Current visit: Yes Status: Chronic - Continue home meds. Qualifiers: Hyperlipidemia type: mixed hyperlipidemia Qualified Code(s): E78.2 - Mixed hyperlipidemia (5) Tobacco abuse Current visit: Yes Status: Chronic - Encouraged tobacco cessation. - Pt states she has cut down but not ready to quit yet. (6) Type 2 diabetes mellitus Current visit: Yes Status: Chronic - Most recent A1c in July was 6.5% - Will repeat A1c - SSI and careful monitoring with administration of steroids for COPD. - Diabetic diet Qualifiers: Diabetes mellitus complication status: without complication Diabetes mellitus detention insulin use: without detention use Qualified Code(s): E11.9 - Type 2 diabetes mellitus without complications (7) DVT prophylaxis Current visit: No Status: Acute - Heparin 5000 units q12 Internal Medicine - H&P: HPI Chief complaint: SOB Admitted From: Emergency Dept Plans for Post Hospital Care: Home History of present illness: Ms. Gavin is a 66 year old female with a PMHx of COPD, DM2 presents to ED with a complaint of SOB x1 day. She states she awoke at 0600 SOB at rest and with exertion. She has experienced this before with her COPD but has never been admitted before. She tried using her home nebulizer without relief. States productive cough with thick green sputum. Denies fevers, chills, orthopnea, LE edema, nausea, vomiting. Does admit to chest pressure this morning which self resolved after a few moments. Denies other symptoms. She does not wear home O2. In the ED, vitals significant for tachycardia, tachypnea, SpO2 in mid 90s on 4L O2. Labs unremarkable. CXR shows no acute process. EKG showed sinus tachycardia. Past Med Surg Social Fam HX - Past Medical History Medical history: COPD, diabetes, hyperlipidemia, hypertension, peripheral artery disease, renal disease, other Psychiatric history: no psych history - Past Surgical History Surgical History: , cataract, other - Social History Smoking Status: Current some day smoker Smokeless Tobacco Status: No Alcohol use: none Drug use: none - Family History Father Adopted: No Family Member Ethnicity: Non- Living Status: Hx Family Cardiac Disorders: Yes (ID at age 45) Hx Family Respiratory Disorders: Yes Hx Family Cancer: Yes Hx Family GI Disorders: No Hx Family Endocrine Disorder: Yes Hx Family Neuromuscular Disorders: No Hx Family Neurologic Disorders: No Hx Family HEENT Disorders: No Hx Family Autoimmune Disorders: No Brother Hx Family Cardiac Disorders: Yes (CABG at age 52) Internal Medicine - H&P: Meds Gabapentin [Neurontin] 600 mg PO BID 04/27/15 [History] Lisinopril [Zestril] 5 mg PO AD 04/27/15 [History] Ipratropium/Albuterol Neb [Duoneb] 3 ml IH Q6HR PRN #40 vial.neb 04/28/15 [Rx] Metformin [Glucophage] 500 mg PO BID 05/16/15 [History] Budesonide/Formoterol 160/4.5 [Symbicort] 2 puff IH BIDR #5 inhaler 05/18/15 [Rx ] Albuterol Neb [AccuNeb] 1.25 mg IH QID PRN 12/25/16 [History] Atorvastatin Calcium [Lipitor] 20 mg PO HS 12/25/16 [History] Roflumilast [Daliresp] 500 mcg PO DAILY 12/25/16 [History] 3 Allergy/AdvReac Type Severity Reaction Status Date / Time No Known Allergies Allergy Verified 04/27/15 02:33 All Systems PM: A 10-system review of systems was performed and is negative for pertinent findings except as documented above in the HPI. - Constitutional Constitutional: no anorexia, no chills, no excessive sweating, no fever(s) - Cardiovascular Cardiovascular ROS IM: chest pain, dyspnea, dyspnea on exertion, paroxysmal nocturnal dyspnea, no diaphoresis, no edema, no lightheadedness, no orthopnea, no palpitations - Respiratory Respiratory: cough, dyspnea, dyspnea on exertion, wheezing, chest congestion, excessive phlegm production, change in phlegm color - Gastrointestinal Gastrointestinal: no abdominal pain, no nausea, no vomiting - Musculoskeletal Musculoskeletal ROS IM: no numbness, no tingling - Neurological Neurological ROS: no numbness, no tingling, no weakness - Constitutional Vitals: Temp Pulse Resp BP Pulse Ox 97.9 F 86 16 170/81 91 06/10/17 00:41 06/10/17 00:41 06/10/17 01:48 06/10/17 00:41 06/10/17 01:48 Exam: Gen.: Vitals noted. No acute distress. AAOx3. Resting comfortably in bed on 3L. Speaking in short sentences without problem. HEENT: PERRL/EOMI, oropharynx clear, Normocephalic, atraumatic, MMM Cardiac: RRR, no murmur, +S1/S2 Pulmonary: extensive wheezing in all lobes, equal chest expansion Abdomen: soft, nontender, BS noted, no guarding MSK: ROM intact, no joint swelling noted Extremities: no BLE edema, nontender calf, no cyanosis or clubbing Neuro: A&Ox3, moves all extremities, no focal deficits Psych: Appropriate mood and behavior Internal Med - H&P Results - Labs CBC & Chem 7: 06/09/17 22:13 06/09/17 22:13 <Sahra Fonseca - Last Filed: 06/10/17 05:58> Date of Encounter: 06/10/17 Internal Medicine - H&P: HPI History of present illness: Ms. Gavin is a 66 year old female All Systems PM: A 10-system review of systems was performed and is negative for pertinent findings except as documented above in the HPI. - Constitutional Vitals: Temp Pulse Resp BP Pulse Ox 97.8 F 110 18 148/77 98 06/10/17 03:19 06/10/17 03:19 06/10/17 04:13 06/10/17 03:19 06/10/17 04:13 Internal Med - H&P Results - Labs CBC & Chem 7: 06/10/17 02:54 06/10/17 02:54 Labs: Short CBC 06/10/17 Range/Units 02:54 WBC 8.8 (4.3-11.1) K/mcL Hgb 13.2 (11.5-15.4) g/dL Hct 41.1 (35.3-44.9) % Plt Count 186 (140-400) K/mcL Neutrophils # 8.0 (1.6-8.9) K/mcL BMP 06/10/17 02:54 Sodium 138 Potassium 4.5 Chloride 107 Carbon Dioxide 20 BUN 13 Creatinine 0.95 Glucose 211 H Calcium 10.1 Cardiac Enzymes 06/10/17 Range/Units 02:54 Troponin I 0.03 (0-0.03) ng/mL - Attending Attestation I have seen and examined patient independently. I have discussed with the resident physician Dr. Matos regarding the management plan. Agree with the documentation. Patient to come with shortness of breath. History of COPD. Has a diffuse wheezing bilaterally. Consider COPD exacerbation. Will treat patient with steroid, IV azithromycin, and bronchodilator. Give 1 dose of magnesium for bronchospasm.
[2017-06-10] MEDS ORDERED: D5% in Water 1,000 ML IVC PRN (02:27)
[2017-06-10] MEDS ORDERED: Dextrose Gel 15 GM PO PRN ×2 (02:27)
[2017-06-10] MEDS ORDERED: *HR* Dextrose 50 % in Water (Syg) 50 ML SYRINGE IVP PRN (02:27)
[2017-06-10] MEDS: Acetaminophen 325 MG TABLET PO PRN ×2 (03:33→21:49)
[2017-06-10 04:06] LABS: Basophils % 0.3 %; Eosinophils # 0.1 K/mcL (0.0-0.6); Eosinophils % 0.7 %; Hematocrit 41.1 % (35.3-44.9); Hemoglobin 13.2 g/dL (11.5-15.4); Immature Granulocytes % 0.5 % (0-4); Immature Platelets 10.2 % (1.1-6.1); Lymphocytes # 0.5 K/mcL (0.6-4.6); Lymphocytes % 5.8 %; Mean Corpuscular HGB Conc 32.1 g/dL (31.6-35.5); Mean Corpuscular Hemoglobin 29.1 pg (28.0-33.3); Mean Corpuscular Volume 90.5 fL (83.0-100.0); Mean Platelet Volume 11.9 fL (9.4-12.4); Monocytes # 0.1 K/mcL (0.0-1.3); Monocytes % 1.6 %; Platelet Count 186 K/mcL (140-400); Red Blood Count 4.54 M/mcL (3.82-4.97); Red Cell Distribution Width 13.8 % (11.5-14.5); Segmented Neutrophils % 91.1 %
[2017-06-10 04:19] LABS: BUN/Creatinine Ratio 14 (6-26); Blood Urea Nitrogen 13 mg/dL (7-20); Calcium 10.1 mg/dL (8.6-10.8); Carbon Dioxide 20 mEq/L (19-29); Chloride 107 mEq/L (98-109); Chol/HDL Ratio 4.9 (0-4.9); Cholesterol 187 mg/dL (< 200); Glucose 211 mg/dL (70-99); HDL Cholesterol 38 mg/dL (40-59); Hemoglobin A1C 5.9 %; LDL Cholesterol,Calculated 120 mg/dL (0-99); Magnesium 2.7 mg/dL (1.6-2.6); Osmolality,Calculated 292 (280-300); Potassium 4.5 mEq/L (3.5-4.5); Sodium 138 mEq/L (136-145); Triglycerides 144 mg/dL (< 150); eGFR For African Americans > 60 (> 60); eGFR For Non-African Americans 59 (> 60)
[2017-06-10] MEDS: *HR* Heparin 5,000 UNIT/ML VIAL SQ SCH ×2 (06:06→17:29)
[2017-06-10] MEDS: methylPREDNISolone 125 MG/2 ML VIAL IVP SCH ×4 (06:06→23:37)
[2017-06-10] MEDS: Budesonide/Formoterol 160/4.5 MDI IH SCH ×2 (08:15→19:58)
[2017-06-10] MEDS: Nicotine 7 MG PATCH.TD24 TD SCH ×2 (08:53→08:58)
[2017-06-10] MEDS: Azithromycin 250 MG TABLET PO SCH (08:55)
[2017-06-10] MEDS: Gabapentin 300 MG CAPSULE PO SCH ×2 (08:55→21:48)
[2017-06-10] MEDS: Insulin LISPRO 300 UNITS/3 ML VIAL SQ SCH ×3 (08:55→17:27)
--- NOTE | 2017-06-10 10:39 | Event Note ---
Date of Encounter: 06/10/17 Time of Encounter: 09:50 Patient continues to have shortness of breath although it has improved compared to yesterday. Denies any chest pain at this time. On examination patient has bilateral wheezing. We will continue bronchodilators, steroids and levofloxacin. Continue O2 supplementation.
--- NOTE | 2017-06-10 17:40 | Electrocardiograph Report ---
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
[2017-06-11] MEDS: Ipratropium/Albuterol Neb 3 ML IH SCH ×3 (04:32→11:05)
[2017-06-11] MEDS: *HR* Heparin 5,000 UNIT/ML VIAL SQ SCH (06:13)
[2017-06-11] MEDS: methylPREDNISolone 125 MG/2 ML VIAL IVP SCH ×2 (06:13→12:35)
[2017-06-11] MEDS: Budesonide/Formoterol 160/4.5 MDI IH SCH (07:59)
[2017-06-11] MEDS: Nicotine 7 MG PATCH.TD24 TD SCH (09:25)
[2017-06-11] MEDS: Azithromycin 250 MG TABLET PO SCH (09:25)
[2017-06-11] MEDS: Gabapentin 300 MG CAPSULE PO SCH (09:25)
[2017-06-11] MEDS: Insulin LISPRO 300 UNITS/3 ML VIAL SQ SCH ×2 (09:27→12:31)
[2017-06-11 11:47] VITALS: BP 127/61
--- NOTE | 2017-06-11 13:12 | Discharge Summary ---
Date of Encounter: 06/11/17 Time of Encounter: 13:09 - Discharge Diagnosis (1) Acute exacerbation of chronic obstructive airways disease Priority: Primary Status: Acute (2) Acute respiratory failure with hypoxemia Priority: Secondary Status: Resolved (3) DVT prophylaxis Priority: Secondary Status: Acute (4) HLD (hyperlipidemia) Priority: Secondary Status: Chronic Qualifiers: Hyperlipidemia type: mixed hyperlipidemia Qualified Code(s): E78.2 - Mixed hyperlipidemia (5) HTN (hypertension) Priority: Secondary Status: Chronic Qualifiers: Hypertension type: essential hypertension Qualified Code(s): I10 - Essential (primary) hypertension (6) Tobacco abuse Priority: Secondary Status: Chronic (7) Type 2 diabetes mellitus Priority: Secondary Status: Chronic Qualifiers: Diabetes mellitus complication status: without complication Diabetes mellitus continuous churn buttermaker insulin use: without usp use Qualified Code(s): E11.9 - Type 2 diabetes mellitus without complications - Discharge Medications Prescriptions: Azithromycin [Zithromax] 500 mg PO DAILY #8 tablet predniSONE [PredniSONE] 10 mg PO DAILY 12 Days tablet Home Medications: Gabapentin [Neurontin] 600 mg PO BID 04/27/15 [History] Ipratropium/Albuterol Neb [Duoneb] 3 ml IH Q6HR PRN #40 vial.neb 04/28/15 [Rx] Metformin [Glucophage] 500 mg PO BID 05/16/15 [History] Budesonide/Formoterol 160/4.5 [Symbicort] 2 puff IH BIDR #5 inhaler 05/18/15 [Rx ] Albuterol Neb [AccuNeb] 1.25 mg IH QID PRN 12/25/16 [History] Atorvastatin Calcium [Lipitor] 20 mg PO HS 12/25/16 [History] Roflumilast [Daliresp] 500 mcg PO DAILY 12/25/16 [History] Lisinopril [Zestril] 5 mg PO DAILY 06/10/17 [History] Azithromycin [Zithromax] 500 mg PO DAILY #8 tablet 06/11/17 [Rx] predniSONE [PredniSONE] 10 mg PO DAILY 12 Days tablet 06/11/17 [Rx] Allergies/Adverse Reactions: 3 Allergy/AdvReac Type Severity Reaction Status Date / Time No Known Allergies Allergy Verified 06/10/17 12:50 Date of admission: 06/10/17 00:05 Primary care physician: Leroy Roman MD Consults: 06/10/17 00:46 Consult to Neurological Surgeon [CONS] Routine Reason for SW Consult: Possible need for home oxygen 06/10/17 02:01 Consult to Nurse Navigator [CONS] Routine Comment: Discharging clinician: Brock Delgado Anticipated date of discharge: 06/11/17 - Patient Status Disposition: Home, Self-Care Condition: Good Functional capacity at discharge: independent ambulation Overall status at discharge: patient is progressing back to baseline - Discharge Instructions Instructions: Acute Respiratory Distress Syndrome (DC), Chronic Obstructive Pulmonary Disease (DC), Chronic Hypertension (DC) Follow Up With: Leroy Roman MD [Primary Care Provider] - (In 1-2 weeks) Amos Lerner MD [Partnered Physician] - (In 1-2 weeks) Forms: ED Satisfaction Letter - Diet and Activity Activity: increase activity as tolerated Diet: advance to your usual diet, diabetic diet, low fat, low cholesterol, low salt diet Hospital course: Ms. Gavin is a 66 year old female patient with a history of COPD he was hospitalized here with acute exacerbation of COPD and acute respiratory failure with hypoxia. She was treated with O2 supplementation, bronchodilators and intravenous steroids. Her symptoms have since improved and she is now doing much better. She was evaluated for home oxygen and did not qualify for this. She is clinically stable to be discharged home on oral steroid taper and will complete oral antibiotic course with azithromycin. She will follow up with pulmonology as outpatient for further management of her COPD. - Time Spent with Patient Total time spent providing and/or coordinating discharge services: Greater than 30 minutes (35 min) - Constitutional Vitals: Temp Pulse Resp BP Pulse Ox 97.9 F 111 17 127/61 94 06/11/17 11:41 06/11/17 11:41 06/11/17 11:41 06/11/17 11:41 06/11/17 12:40 General appearance: Present: cooperative, A&O X 3, answers questions appropriately - Neck Neck exam general surgery: Present: supple, trachea midline. Absent: lymphadenopathy - Respiratory Respiratory exam: Present: prolonged expiratory phase, rhonchi, wheezes. Absent : accessory muscle use, rales - Cardiovascular Cardiovascular exam: Present: RRR, +S1, +S2. Absent: diastolic murmur, gallop, rubs, systolic murmur - GI/Abdominal GI/Abdominal exam: Present: normal bowel sounds, soft, no peritoneal signs. Absent: distended, tenderness - Extremities Exam Extremities exam: Present: warm, radial pulses palpable and symmetrical. Absent : calf tenderness, cyanotic, pedal edema - Neurological Exam Neurological exam: Present: alert, oriented X3, no focal deficits. Absent: facial droop, speech deficit - Skin Skin exam: Present: dry, intact
== END 2017-06-11 14:33 | disposition home or self-care (01) ==
LOC: 3BNU 22:08 → EMEROO 22:08 → SUATTDRO 06-10 00:05 → 3BNU 06-10 00:26
PROVIDERS: ADMIT Internal Medicine; ATTEND Internal Medicine

== ENCOUNTER 2017-10-31 20:56 | Observation (INO) ==
[2017-10-31] MEDS ORDERED: Azithromycin 250 MG TABLET PO ONE (21:00)
[2017-10-31] MEDS ORDERED: methylPREDNISolone 125 MG/2 ML VIAL IVP ONE (21:00)
--- NOTE | 2017-10-31 21:03 | Emergency Department Note ---
Disposition Clinical Impression: Acute exacerbation of chronic obstructive airways disease Disposition: Admitted As Inpatient Condition: Good Referrals: Leroy Roman MD [Primary Care Provider] - Forms: ED Satisfaction Letter General Adult HPI - General Chief complaint: ED Shortness of Breath/Dyspnea Stated complaint: Halie Time Seen by Provider: 10/31/17 20:58 - Related Data Home Medications Medication Instructions Recorded Confirmed Metformin [Glucophage] 500 mg PO BID 05/16/15 10/31/17 Atorvastatin Calcium [Lipitor] 20 mg PO HS 12/25/16 10/31/17 Roflumilast [Daliresp] 500 mcg PO DAILY 12/25/16 10/31/17 Lisinopril [Zestril] 5 mg PO DAILY 06/10/17 10/31/17 Acetaminophen [Tylenol] 500 mg PO Q6H PRN 10/31/17 10/31/17 Albuterol Sulfate [Proair Hfa] 2 puff IH Q4H PRN 10/31/17 10/31/17 Gabapentin [Neurontin] 600 mg PO BID 10/31/17 10/31/17 Previous Rx's Medication Instructions Recorded Ipratropium/Albuterol Neb [Duoneb] 3 ml IH Q6HR PRN #40 vial.neb 04/28/15 Budesonide/Formoterol 160/4.5 2 puff IH BIDR #5 inhaler 05/18/15 [Symbicort] Allergies Allergy/AdvReac Type Severity Reaction Status Date / Time No Known Allergies Allergy Verified 06/10/17 12:50 Past Medical History - Past Medical History Medical history: Reports: COPD, diabetes, hyperlipidemia, hypertension, peripheral artery disease, renal disease, other Surgical history: Reports: , cataract, other Psychiatric history: Reports: no psych history - Social History Smoking Status: Current some day smoker Smokeless Tobacco Status: No Alcohol use: Reports: none Drug use: Reports: none Course Vital Signs Temperature 97.6 F 10/31/17 21:04 Pulse Rate 100 10/31/17 21:04 Respiratory Rate 20 10/31/17 21:04 Blood Pressure 131/81 10/31/17 21:04 O2 Sat by Pulse Oximetry 95 10/31/17 21:04 Temperature 97.6 F 10/31/17 21:04 Pulse Rate 100 10/31/17 21:04 Respiratory Rate 20 10/31/17 21:04 Blood Pressure 131/81 10/31/17 21:04 O2 Sat by Pulse Oximetry 95 10/31/17 21:08 Oxygen Delivery Oxygen Delivery Nasal Cannula Medical Decision Making - Lab Data Result diagrams: 10/31/17 21:20 10/31/17 21:20 Lab Results 10/31/17 10/31/17 10/31/17 Range/Units 21:20 21:20 21:20 WBC 9.9 (4.3-11.1) K/mcL RBC 4.53 (3.82-4.97) M/mcL Hgb 13.2 (11.5-15.4) g/dL Hct 41.8 (35.3-44.9) % MCV 92.3 (83.0-100.0) fL MCH 29.1 (28.0-33.3) pg MCHC 31.6 (31.6-35.5) g/dL RDW 12.8 (11.5-14.5) % Plt Count 203 (140-400) K/mcL MPV 11.7 (9.4-12.4) fL Immature Gran % 0.4 (0-4) % Seg Neutrophils % 68.7 % Lymphocytes % 16.7 % Monocytes % 5.1 % Eosinophils % 8.5 % Basophils % 0.6 % Neutrophils # 6.8 (1.6-8.9) K/mcL Lymphocytes # 1.7 (0.6-4.6) K/mcL Monocytes # 0.5 (0.0-1.3) K/mcL Eosinophils # 0.8 H (0.0-0.6) K/mcL Basophils # 0.1 (0.0-0.2) K/mcL Sodium 142 (136-145) mEq/L Potassium 4.1 (3.5-5.1) mEq/L Chloride 111 H (98-107) mEq/L Carbon Dioxide 23 (23-29) mEq/L BUN 24 H (8-23) mg/dL Creatinine 0.82 (0.60-1.20) mg/dL Est GFR ( Amer) > 60 (> 60) Est GFR (Non-Af Amer) > 60 (> 60) BUN/Creatinine Ratio 29 H (6-26) Glucose 117 H (70-105) mg/dL Calculated Osmolality 299 (280-300) Lactic Acid 0.7 (0.5-2.2) mmol/L Calcium 9.7 (8.6-10.3) mg/dL Troponin I < 0.03 (< 0.04) ng/mL B-Natriuretic Peptide (Less than 100) pg/mL Urine Color (Yellow) Urine Clarity (Clear) Urine pH (5.0-8.0) pH Units Ur Specific [place] (1.010-1.025) Urine Protein (Neg-Trace) mg/dL Urine Glucose (UA) (Normal) mg/dL Urine Ketones (Negative) mg/dL Urine Blood (Negative) Urine Nitrite (Negative) Urine Bilirubin (Negative) Urine Urobilinogen (Normal) mg/dL Ur Leukocyte Esterase (Negative) Ur Culture Indicated? (NO) 10/31/17 10/31/17 Range/Units 21:20 21:25 WBC (4.3-11.1) K/mcL RBC (3.82-4.97) M/mcL Hgb (11.5-15.4) g/dL Hct (35.3-44.9) % MCV (83.0-100.0) fL MCH (28.0-33.3) pg MCHC (31.6-35.5) g/dL RDW (11.5-14.5) % Plt Count (140-400) K/mcL MPV (9.4-12.4) fL Immature Gran % (0-4) % Seg Neutrophils % % Lymphocytes % % Monocytes % % Eosinophils % % Basophils % % Neutrophils # (1.6-8.9) K/mcL Lymphocytes # (0.6-4.6) K/mcL Monocytes # (0.0-1.3) K/mcL Eosinophils # (0.0-0.6) K/mcL Basophils # (0.0-0.2) K/mcL Sodium (136-145) mEq/L Potassium (3.5-5.1) mEq/L Chloride (98-107) mEq/L Carbon Dioxide (23-29) mEq/L BUN (8-23) mg/dL Creatinine (0.60-1.20) mg/dL Est GFR ( Amer) (> 60) Est GFR (Non-Af Amer) (> 60) BUN/Creatinine Ratio (6-26) Glucose (70-105) mg/dL Calculated Osmolality (280-300) Lactic Acid (0.5-2.2) mmol/L Calcium (8.6-10.3) mg/dL Troponin I (< 0.04) ng/mL B-Natriuretic Peptide 43 (Less than 100) pg/mL Urine Color Yellow (Yellow) Urine Clarity Clear (Clear) Urine pH 6.5 (5.0-8.0) pH Units Ur Specific [place] 1.020 (1.010-1.025) Urine Protein Negative (Neg-Trace) mg/dL Urine Glucose (UA) Normal (Normal) mg/dL Urine Ketones Negative (Negative) mg/dL Urine Blood Negative (Negative) Urine Nitrite Negative (Negative) Urine Bilirubin Negative (Negative) Urine Urobilinogen Normal (Normal) mg/dL Ur Leukocyte Esterase Negative (Negative) Ur Culture Indicated? NO (NO) Attestation Statement - Attestation Attestation: I examined this patient and my medical decision-making was reviewed with the Resident Physician. I agree with the documented findings, disposition and treatment plan as described except to the extent set forth below. [id number] time provided Patient arrives complaining of dyspnea. She has a known history of COPD but is not oxygen dependent. She is mildly tachypneic and dyspneic upon arrival. Patient will be evaluated and treated for suspected COPD exacerbation
--- NOTE | 2017-10-31 21:04 | Emergency Department Note ---
Disposition Clinical Impression: Acute exacerbation of chronic obstructive airways disease Disposition: Admitted As Inpatient Condition: Good Referrals: Leroy Roman MD [Primary Care Provider] - Forms: ED Satisfaction Letter Time of Disposition: 22:39 [facility] - General Chief Complaint: ED Shortness of Breath/Dyspnea Stated Complaint: Halie Time Seen by Provider: 10/31/17 20:58 Source: patient, EMS Mode of arrival: EMS Limitations: no limitations Nursing Notes Reviewed: Yes Vital Signs Reviewed: Yes - History of Present Illness Patient presenting to the ED with the chief complaint of shortness breath and cough. Started about a week ago with wheezing gradually worsened to the point today where she could not breathe and her breathing treatments were not helping. Mild nonproductive cough. No chest pain, but is having chest tightness. No fever or chills, abdominal pain, nausea, vomiting, diarrhea, diaphoresis, pain or swelling in her legs. No history of DVT, PE, malignancy - Related Data Home Medications Medication Instructions Recorded Confirmed Metformin [Glucophage] 500 mg PO BID 05/16/15 10/31/17 Atorvastatin Calcium [Lipitor] 20 mg PO HS 12/25/16 10/31/17 Roflumilast [Daliresp] 500 mcg PO DAILY 12/25/16 10/31/17 Lisinopril [Zestril] 5 mg PO DAILY 06/10/17 10/31/17 Acetaminophen [Tylenol] 500 mg PO Q6H PRN 10/31/17 10/31/17 Albuterol Sulfate [Proair Hfa] 2 puff IH Q4H PRN 10/31/17 10/31/17 Gabapentin [Neurontin] 600 mg PO BID 10/31/17 10/31/17 Previous Rx's Medication Instructions Recorded Ipratropium/Albuterol Neb [Duoneb] 3 ml IH Q6HR PRN #40 vial.neb 04/28/15 Budesonide/Formoterol 160/4.5 2 puff IH BIDR #5 inhaler 05/18/15 [Symbicort] Allergies Allergy/AdvReac Type Severity Reaction Status Date / Time No Known Allergies Allergy Verified 06/10/17 12:50 Review of Systems: As reviewed in the HPI. All other systems reviewed are negative or normal. Constitutional: Reports: as per HPI Eyes: Reports: as per HPI ENT ED: Reports: as per HPI Past Medical History - Past Medical History Attestation: Yes The following information was validated with the patient. Source: patient Medical history: Reports: COPD, diabetes, hyperlipidemia, hypertension, peripheral artery disease, renal disease, other Surgical history: Reports: , cataract, other Psychiatric history: Reports: no psych history - Social History Smoking Status: Current some day smoker Smokeless Tobacco Status: No Alcohol use: Reports: none Drug use: Reports: none Physical Exam - General Limitations: no limitations General appearance: alert, in no apparent distress - Respiratory Respiratory exam: Present: respiratory distress, wheezes. Absent: normal lung sounds bilaterally - Cardiovascular Cardiovascular exam: Present: regular rate, normal rhythm, normal heart sounds - Abdominal Exam Abdominal exam: Present: soft, Non-Tender. Absent: tenderness, distention, guarding, rebound, rigidity - Extremities Exam Extremities exam: Present: normal inspection, full ROM. Absent: tenderness, pedal edema Course Course Narrative: Patient presenting with a COPD exacerbation. Will start off with meds and steroids. Patient likely be admitted. I don't think she will need BiPAP at this time, but if she does not improve we will escalate care. - Reevaluation(s) Reevaluation #1: Patient feeling slightly better after nebs. Has required some oxygen and does not normally oxygen dependent. We will admit the hospitalist service for COPD exacerbation to see if she will qualify for home oxygen. Vital Signs Temperature 97.6 F 10/31/17 21:04 Pulse Rate 100 10/31/17 21:04 Respiratory Rate 20 10/31/17 21:04 Blood Pressure 131/81 10/31/17 21:04 O2 Sat by Pulse Oximetry 95 10/31/17 21:04 Temperature 97.6 F 10/31/17 21:04 Pulse Rate 100 10/31/17 21:04 Respiratory Rate 20 10/31/17 21:04 Blood Pressure 131/81 10/31/17 21:04 O2 Sat by Pulse Oximetry 95 10/31/17 21:08 Oxygen Delivery Oxygen Delivery Nasal Cannula Shortness of Breath/Dyspnea - Medical Records Medical records reviewed: Yes I reviewed the patient's medical records. - Lab Data Lab results reviewed: Yes I reviewed the patient's lab results. Result diagrams: 10/31/17 21:20 10/31/17 21:20 Lab Results 0410/31/17 10/31/17 Range/Units 21:20 21:20 21:20 WBC 9.9 (4.3-11.1) K/mcL RBC 4.53 (3.82-4.97) M/mcL Hgb 13.2 (11.5-15.4) g/dL Hct 41.8 (35.3-44.9) % MCV 92.3 (83.0-100.0) fL MCH 29.1 (28.0-33.3) pg MCHC 31.6 (31.6-35.5) g/dL RDW 12.8 (11.5-14.5) % Plt Count 203 (140-400) K/mcL MPV 11.7 (9.4-12.4) fL Immature Gran % 0.4 (0-4) % Seg Neutrophils % 68.7 % Lymphocytes % 16.7 % Monocytes % 5.1 % Eosinophils % 8.5 % Basophils % 0.6 % Neutrophils # 6.8 (1.6-8.9) K/mcL Lymphocytes # 1.7 (0.6-4.6) K/mcL Monocytes # 0.5 (0.0-1.3) K/mcL Eosinophils # 0.8 H (0.0-0.6) K/mcL Basophils # 0.1 (0.0-0.2) K/mcL Sodium 142 (136-145) mEq/L Potassium 4.1 (3.5-5.1) mEq/L Chloride 111 H (98-107) mEq/L Carbon Dioxide 23 (23-29) mEq/L BUN 24 H (8-23) mg/dL Creatinine 0.82 (0.60-1.20) mg/dL Est GFR ( Amer) > 60 (> 60) Est GFR (Non-Af Amer) > 60 (> 60) BUN/Creatinine Ratio 29 H (6-26) Glucose 117 H (70-105) mg/dL Calculated Osmolality 299 (280-300) Lactic Acid 0.7 (0.5-2.2) mmol/L Calcium 9.7 (8.6-10.3) mg/dL Troponin I < 0.03 (< 0.04) ng/mL B-Natriuretic Peptide (Less than 100) pg/mL Urine Color (Yellow) Urine Clarity (Clear) Urine pH (5.0-8.0) pH Units Ur Specific [place] (1.010-1.025) Urine Protein (Neg-Trace) mg/dL Urine Glucose (UA) (Normal) mg/dL Urine Ketones (Negative) mg/dL Urine Blood (Negative) Urine Nitrite (Negative) Urine Bilirubin (Negative) Urine Urobilinogen (Normal) mg/dL Ur Leukocyte Esterase (Negative) Ur Culture Indicated? (NO) 10/31/17 10/31/17 Range/Units 21:20 21:25 WBC (4.3-11.1) K/mcL RBC (3.82-4.97) M/mcL Hgb (11.5-15.4) g/dL Hct (35.3-44.9) % MCV (83.0-100.0) fL MCH (28.0-33.3) pg MCHC (31.6-35.5) g/dL RDW (11.5-14.5) % Plt Count (140-400) K/mcL MPV (9.4-12.4) fL Immature Gran % (0-4) % Seg Neutrophils % % Lymphocytes % % Monocytes % % Eosinophils % % Basophils % % Neutrophils # (1.6-8.9) K/mcL Lymphocytes # (0.6-4.6) K/mcL Monocytes # (0.0-1.3) K/mcL Eosinophils # (0.0-0.6) K/mcL Basophils # (0.0-0.2) K/mcL Sodium (136-145) mEq/L Potassium (3.5-5.1) mEq/L Chloride (98-107) mEq/L Carbon Dioxide (23-29) mEq/L BUN (8-23) mg/dL Creatinine (0.60-1.20) mg/dL Est GFR ( Amer) (> 60) Est GFR (Non-Af Amer) (> 60) BUN/Creatinine Ratio (6-26) Glucose (70-105) mg/dL Calculated Osmolality (280-300) Lactic Acid (0.5-2.2) mmol/L Calcium (8.6-10.3) mg/dL Troponin I (< 0.04) ng/mL B-Natriuretic Peptide 43 (Less than 100) pg/mL Urine Color Yellow (Yellow) Urine Clarity Clear (Clear) Urine pH 6.5 (5.0-8.0) pH Units Ur Specific [place] 1.020 (1.010-1.025) Urine Protein Negative (Neg-Trace) mg/dL Urine Glucose (UA) Normal (Normal) mg/dL Urine Ketones Negative (Negative) mg/dL Urine Blood Negative (Negative) Urine Nitrite Negative (Negative) Urine Bilirubin Negative (Negative) Urine Urobilinogen Normal (Normal) mg/dL Ur Leukocyte Esterase Negative (Negative) Ur Culture Indicated? NO (NO) - Radiology Data Radiology results reviewed: Yes I reviewed the patient's radiology results. - EKG Data EKG attestation: Yes I reviewed and interpreted this EKG. EKG results narrative: Sinus tach, rate 103,. 162, QRS 91, QTc 394, normal axis, no acute ischemic changes.
[2017-10-31 21:38] LABS: Basophils # 0.1 K/mcL (0.0-0.2); Basophils % 0.6 %; Eosinophils # 0.8 K/mcL (0.0-0.6); Eosinophils % 8.5 %; Hematocrit 41.8 % (35.3-44.9); Hemoglobin 13.2 g/dL (11.5-15.4); Immature Granulocytes % 0.4 % (0-4); Lymphocytes # 1.7 K/mcL (0.6-4.6); Lymphocytes % 16.7 %; Mean Corpuscular HGB Conc 31.6 g/dL (31.6-35.5); Mean Corpuscular Hemoglobin 29.1 pg (28.0-33.3); Mean Corpuscular Volume 92.3 fL (83.0-100.0); Mean Platelet Volume 11.7 fL (9.4-12.4); Monocytes # 0.5 K/mcL (0.0-1.3); Monocytes % 5.1 %; Neutrophils # 6.8 K/mcL (1.6-8.9); Platelet Count 203 K/mcL (140-400); Red Blood Count 4.53 M/mcL (3.82-4.97); Red Cell Distribution Width 12.8 % (11.5-14.5); Segmented Neutrophils % 68.7 %
[2017-10-31 21:38] LABS: Bilirubin,Urine Negative (Negative); Blood,Urine Negative (Negative); Clarity,Urine Clear (Clear); Color,Urine Yellow (Yellow); Glucose,Urine (UA) Normal (Normal); Ketones,Urine Negative (Negative); Leukocyte Esterase,Urine Negative (Negative); Nitrite,Urine Negative (Negative); PH,Urine 6.5 pH Units (5.0-8.0); Protein,Urine Negative (Neg-Trace); Urobilinogen,Urine Normal (Normal)
[2017-10-31 21:59] LABS: BUN/Creatinine Ratio 29 (6-26); Blood Urea Nitrogen 24 mg/dL (8-23); Calcium 9.7 mg/dL (8.6-10.3); Carbon Dioxide 23 mEq/L (23-29); Chloride 111 mEq/L (98-107); Glucose 117 mg/dL (70-105); Osmolality,Calculated 299 (280-300); Potassium 4.1 mEq/L (3.5-5.1); Sodium 142 mEq/L (136-145); eGFR For African Americans > 60 (> 60); eGFR For Non-African Americans > 60 (> 60)
[2017-10-31 22:00] LABS: Troponin I < 0.03 ng/mL (< 0.04)
[2017-11-01] MEDS ORDERED: Acetaminophen 325 MG TABLET PO PRN (01:19)
[2017-11-01] MEDS ORDERED: Albuterol 2.5 MG/3 ML NEBULIZER IH PRN (01:19)
[2017-11-01] MEDS ORDERED: Naloxone 0.4 MG/ML INJ IVP PRN (01:19)
--- NOTE | 2017-11-01 01:32 | Internal Med History&Physical ---
Date of Encounter: 11/01/17 Time of Encounter: 00:30 Internal Medicine - H&P: HPI Chief complaint: cough, wheeze Admitted From: Emergency Dept Plans for Post Hospital Care: Home History of present illness: Ms. Gavin is a 67 year old female who presents with a several day history of coughing, wheezing, worsening shortness of breath, and malaise. She suffers from COPD and had been on oral antibiotics and short taper of steroids recently by her PCP. Despite that, she did not improve and continued to worsen. She therefore came to ER for evaluation where she was subsequently admitted to hospitalist service. Upon my assessment of the patient, she looks dehydrated and has some audible wheezing and coughing. She denies any fevers, chills, body aches, headache, nausea, vomiting, or diarrhea. She complains only of coughing, wheezing, and shortness of breath. She has been treated and admitted before for COPD exacerbations in the past. She was reluctant to come to the hospital today but her PCP encouraged her to come to the ER. She denies any hemoptysis. She denies any recent ill contacts or influenza exposure. Despite patient's COPD, she continues to smoke on a daily basis. She does not use oxygen at home. Past Med Surg Social Fam HX - Past Medical History Attestation: Yes The following information was validated with the patient. Source: patient, old records reviewed Medical history: COPD, diabetes, hyperlipidemia, hypertension, peripheral artery disease, renal disease Psychiatric history: no psych history - Past Surgical History Surgical History: , cataract - Social History Smoking Status: Current some day smoker Smokeless Tobacco Status: No Alcohol use: none Drug use: none Current living situation: Home Activity Level: Independent ambulation Recent Out of Country Travel Within the Last 8 Weeks: No - Family History Father Adopted: No Family Member Ethnicity: Non- Living Status: Age at : 45 Cause of : RI Hx Family Cardiac Disorders: Yes (RI at age 45) Hx Family Respiratory Disorders: Yes Hx Family Cancer: Yes Hx Family GI Disorders: No Hx Family Endocrine Disorder: Yes Hx Family Neuromuscular Disorders: No Hx Family Neurologic Disorders: No Hx Family HEENT Disorders: No Hx Family Autoimmune Disorders: No Brother Living Status: Still Living Hx Family Cardiac Disorders: Yes (CABG at age 52) Hx Family Endocrine Disorder: Yes (DM) Internal Medicine - H&P: Meds Ipratropium/Albuterol Neb [Duoneb] 3 ml IH Q6HR PRN #40 vial.neb 04/28/15 [Rx] Metformin [Glucophage] 500 mg PO BID 05/16/15 [History] Budesonide/Formoterol 160/4.5 [Symbicort] 2 puff IH BIDR #5 inhaler 05/18/15 [Rx ] Atorvastatin Calcium [Lipitor] 20 mg PO HS 12/25/16 [History] Roflumilast [Daliresp] 500 mcg PO DAILY 12/25/16 [History] Lisinopril [Zestril] 5 mg PO DAILY 06/10/17 [History] Acetaminophen [Tylenol] 500 mg PO Q6H PRN 10/31/17 [History] Albuterol Sulfate [Proair Hfa] 2 puff IH Q4H PRN 10/31/17 [History] Gabapentin [Neurontin] 600 mg PO BID 10/31/17 [History] 3 Allergy/AdvReac Type Severity Reaction Status Date / Time No Known Allergies Allergy Verified 06/10/17 12:50 - Constitutional Constitutional: no chills, no fever(s), no night sweats - EENT Eyes: no blurry vision, no change in vision Ears: no ear pain, no tinnitus Nose, mouth and throat: nasal congestion, no sinus pain, no sinus pressure, no sore throat - Cardiovascular Cardiovascular ROS IM: no chest pain, no diaphoresis, no orthopnea, no paroxysmal nocturnal dyspnea, no syncope - Respiratory Respiratory: cough, dyspnea, dyspnea on exertion, wheezing, chest congestion, excessive phlegm production, change in phlegm color, no hemoptysis, no pain on inspiration, no pain with cough - Gastrointestinal Gastrointestinal: no abdominal pain, no diarrhea, no hematemesis, no hematochezia, no melena, no nausea, no vomiting - Genitourinary Genitourinary: no dysuria, no flank pain, no hematuria - Musculoskeletal Musculoskeletal ROS IM: no arthralgias, no back pain, no joint swelling, no muscle cramps, no muscle weakness - Integumentary Integumentary IM: no rash, no jaundice - Neurological Neurological ROS: no dizziness, no focal weakness, no frequent falls, no headache(s) - Psychiatric Psychiatric: no anxiety, no depression - Endocrine Endocrine IM: no polydipsia, no polyuria - Hematologic/Lymphatic Hematologic/Lymphatic: no easy bruising, no lymphadenopathy - Allergic/Immunologic Allergic/Immunologic: no wheezing, no GI upset with certain foods - Constitutional Vitals: Temp Pulse Resp BP Pulse Ox 97.7 F 94 17 147/79 95 11/01/17 00:49 11/01/17 00:49 11/01/17 00:49 11/01/17 00:49 11/01/17 00:49 General appearance: Present: cooperative, mild distress (coughing and wheezing) , A&O X 3, pleasant - Head Head exam: Present: atraumatic, normal inspection - Eye Eye exam: Present: EOMI, normal appearance, PERRL. Absent: scleral icterus Pupils: Present: normal accommodation - ENT ENT exam: Present: mucous membranes dry, normal exam, normal oropharynx - Neck Neck exam general surgery: Present: full ROM, supple. Absent: tenderness, nuchal rigidity - Respiratory Respiratory exam: Present: decreased breath sounds, prolonged expiratory phase, respiratory distress (mild), rhonchi, wheezes. Absent: chest wall tenderness, rales - Cardiovascular Cardiovascular exam: Present: RRR, +S1, +S2. Absent: diastolic murmur, systolic murmur - GI/Abdominal GI/Abdominal exam: Present: normal bowel sounds, soft. Absent: hepatomegaly, mass, splenomegaly, tenderness - Extremities Exam Extremities exam: Present: full ROM, normal capillary refill, radial pulses palpable and symmetrical. Absent: calf tenderness, joint swelling, tenderness, warm - Back Exam Back exam: Present: normal inspection. Absent: CVA tenderness (L), CVA tenderness (R) - Neurological Exam Neurological exam: Present: alert, CN II-XII intact, oriented X3, no focal deficits - Psychiatric Psychiatric exam: Present: normal affect, normal mood - Skin Skin exam: Present: dry, warm. Absent: rash Internal Med - H&P Results - Labs CBC & Chem 7: 10/31/17 21:20 10/31/17 21:20 - EKG Data -: EKG Interpreted by Myself - EKG Data Prior EKG available for review: no EKG comments: 11/01/17 01:35 Sinus tachycardia - Diagnostic Studies Chest x-ray Status: image reviewed by me (negative) - Assessment and plan (1) Acute exacerbation of chronic obstructive airways disease Current Visit: Yes Status: Acute Assessment and plan: 1. Will place on IV steroids, scheduled and PRN aerosols, and antibiotics. 2. Oxygen as needed for hypoxemia. 3. Monitor closely and adjust meds/treatment as necessary. 4. Smoking cessation well advised. (2) Type 2 diabetes mellitus Current Visit: Yes Status: Chronic Assessment and plan: 1. Hold oral meds. 2. Will place on SSI and monitor glucose closely and adjust dosing as needed. Qualifiers: Diabetes mellitus jail insulin use: without exterminator use Diabetes mellitus complication status: without complication Qualified Code(s): E11.9 - Type 2 diabetes mellitus without complications (3) DVT prophylaxis Current Visit: No Status: Acute Assessment and plan: 1. Heparin SQ.
[2017-11-01] MEDS ORDERED: Albuterol 2.5 MG/3 ML NEBULIZER ONE (01:35)
[2017-11-01] MEDS ORDERED: D5% in Water 1,000 ML IVC PRN (01:38)
[2017-11-01] MEDS ORDERED: *HR* Dextrose 50 % in Water (Syg) 50 ML SYRINGE IVP PRN (01:38)
[2017-11-01] MEDS ORDERED: Dextrose Gel 15 GM/37.5 ML TUBE PO PRN ×2 (01:38)
[2017-11-01] MEDS: 0.9 % Sodium Chloride w KCl 20 MEQ/1,000 ML MLS IVC SCH ×2 (02:15→13:10)
[2017-11-01] MEDS: Ipratropium/Albuterol Neb 3 ML IH SCH ×6 (03:25→23:49)
[2017-11-01 05:29] LABS: Basophils % 0.3 %; Eosinophils % 0.5 %; Hematocrit 40.2 % (35.3-44.9); Hemoglobin 12.7 g/dL (11.5-15.4); Immature Granulocytes % 0.5 % (0-4); Lymphocytes # 0.8 K/mcL (0.6-4.6); Lymphocytes % 10.2 %; Mean Corpuscular HGB Conc 31.6 g/dL (31.6-35.5); Mean Corpuscular Hemoglobin 28.9 pg (28.0-33.3); Mean Corpuscular Volume 91.4 fL (83.0-100.0); Mean Platelet Volume 11.8 fL (9.4-12.4); Monocytes # 0.1 K/mcL (0.0-1.3); Monocytes % 1.1 %; Neutrophils # 6.6 K/mcL (1.6-8.9); Nucleated Red Blood Cells 0.3 /100 WBC (0); Platelet Count 195 K/mcL (140-400); Red Cell Distribution Width 12.9 % (11.5-14.5); Segmented Neutrophils % 87.4 %
[2017-11-01] MEDS: *HR* Heparin 5,000 UNIT/ML VIAL SQ SCH ×2 (05:43→16:34)
[2017-11-01 05:46] LABS: Alanine Aminotransferase 10 Units/L (7-52); Albumin/Globulin Ratio 1.4 (1.1-2.2); Alkaline Phosphatase 71 Units/L (34-104); Aspartate Amino Transferase 10 Units/L (13-39); BUN/Creatinine Ratio 32 (6-26); Bilirubin,Total 0.2 mg/dL (0.3-1.0); Blood Urea Nitrogen 26 mg/dL (8-23); Calcium 9.4 mg/dL (8.6-10.3); Carbon Dioxide 22 mEq/L (23-29); Chloride 109 mEq/L (98-107); Globulin 2.8 g/dL (2.4-3.5); Glucose 222 mg/dL (70-105); Magnesium 1.9 mg/dL (1.6-2.6); Osmolality,Calculated 296 (280-300); Potassium 5.1 mEq/L (3.5-5.1); Sodium 137 mEq/L (136-145); Total Protein 6.8 g/dL (6.4-8.9); eGFR For African Americans > 60 (> 60); eGFR For Non-African Americans > 60 (> 60)
[2017-11-01] MEDS: Budesonide/Formoterol 160/4.5 MDI IH SCH ×2 (07:01→20:00)
[2017-11-01] MEDS ORDERED: methylPREDNISolone 125 MG/2 ML VIAL IVP SCH (08:00)
[2017-11-01] MEDS: Insulin LISPRO 300 UNITS/3 ML VIAL SQ SCH ×3 (08:49→16:34)
[2017-11-01] MEDS: levoFLOXacin 500 MG TABLET PO SCH (08:49)
[2017-11-01] MEDS: Gabapentin 300 MG CAPSULE PO SCH ×2 (08:49→21:47)
[2017-11-01 09:00] LABS: Estimated Average Glucose 131 mg/dl; Hemoglobin A1C 6.2 %
[2017-11-01] MEDS ORDERED: (Roflumilast [Daliresp] 500 MCG) PO SCH (09:00)
[2017-11-01] MEDS: MethylPREDNISolone 40 MG/ML VIAL IVP SCH ×2 (09:19→16:34)
--- NOTE | 2017-11-01 14:08 | Event Note ---
Date of Encounter: 11/01/17 Time of Encounter: 14:05 Patient is a 67y/o female admitted for acute exacerbation of COPD. Pt seen and examined at bedside. Reports of improvement in her breathing compared to yesterday. Currrently saturating well on 3L NC. Pt is an every day smoker and does not want to quit. She is not on any home oxygen will titrate off O2 therapy as tolerated, goal O2 sat: 88-92%, RN notified to slowly titrate off O2 therapy as tolerated Decreased to Methylprednisolone 40mg IV q8h. continue bronchodilator support Sliding scale insulin algorithm. monitor FS and BG, ADA Diet heparin SQ for DVT ppx will closely monitor respiratory status
--- NOTE | 2017-11-01 16:57 | Electrocardiograph Report ---
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
[2017-11-01] MEDS ORDERED: Insulin LISPRO 300 UNITS/3 ML VIAL SQ SCH (21:00)
[2017-11-02] MEDS: MethylPREDNISolone 40 MG/ML VIAL IVP SCH ×2 (00:24→08:57)
[2017-11-02] MEDS: Ipratropium/Albuterol Neb 3 ML IH SCH ×2 (03:35→07:41)
[2017-11-02 04:48] LABS: Basophils % 0.1 %; Eosinophils % 0.1 %; Hematocrit 38.8 % (35.3-44.9); Hemoglobin 12.2 g/dL (11.5-15.4); Immature Granulocytes % 0.6 % (0-4); Lymphocytes # 0.9 K/mcL (0.6-4.6); Lymphocytes % 11.2 %; Mean Corpuscular HGB Conc 31.4 g/dL (31.6-35.5); Mean Corpuscular Hemoglobin 28.8 pg (28.0-33.3); Mean Corpuscular Volume 91.7 fL (83.0-100.0); Mean Platelet Volume 11.7 fL (9.4-12.4); Monocytes # 0.3 K/mcL (0.0-1.3); Monocytes % 3.3 %; Platelet Count 188 K/mcL (140-400); Red Blood Count 4.23 M/mcL (3.82-4.97); Red Cell Distribution Width 13.1 % (11.5-14.5); Segmented Neutrophils % 84.7 %
[2017-11-02 05:05] LABS: BUN/Creatinine Ratio 33 (6-26); Blood Urea Nitrogen 33 mg/dL (8-23); Calcium 9.5 mg/dL (8.6-10.3); Carbon Dioxide 19 mEq/L (23-29); Chloride 110 mEq/L (98-107); Glucose 215 mg/dL (70-105); Osmolality,Calculated 296 (280-300); Phosphorous 2.9 mg/dL (2.7-4.5); Potassium 5.1 mEq/L (3.5-5.1); Sodium 136 mEq/L (136-145); eGFR For African Americans > 60 (> 60); eGFR For Non-African Americans 56 (> 60)
[2017-11-02] MEDS: *HR* Heparin 5,000 UNIT/ML VIAL SQ SCH (05:40)
[2017-11-02 07:25] VITALS: BP 123/57
[2017-11-02] MEDS: Budesonide/Formoterol 160/4.5 MDI IH SCH (07:41)
--- NOTE | 2017-11-02 08:38 | Discharge Summary ---
Date of Encounter: 11/02/17 Time of Encounter: 08:36 - Discharge Diagnosis (1) Acute exacerbation of chronic obstructive airways disease Priority: Primary Status: Acute (2) Type 2 diabetes mellitus Priority: Secondary Status: Chronic Qualifiers: Diabetes mellitus mcc insulin use: without caseworker protective services use Diabetes mellitus complication status: without complication Qualified Code(s): E11.9 - Type 2 diabetes mellitus without complications Hospital course: Ms. Gavin is a 67 year old female who presented with a several day history of coughing, wheezing, worsening shortness of breath, and malaise. Was seen by her PCP and put on a prednisone taper area and she continued to have symptoms of COPD exacerbation. She was admitted to the hospitalist service. Despite that, she did not improve and continued to worsen. She therefore came to ER for evaluation where she was subsequently admitted to hospitalist service. Treated for COPD exacerbation with IV steroids and Levaquin. Eventually discharged on 11/02 on oral prednisone taper as well as Levaquin to finish a course of oral antibiotics. - Time Spent with Patient Total time spent providing and/or coordinating discharge services: Greater than 30 minutes - Discharge Medications Prescriptions: levoFLOXacin [Levaquin] 500 mg PO DAILY #3 tablet predniSONE [PredniSONE] See Taper PO TAPER #30 tablet Home Medications: Ipratropium/Albuterol Neb [Duoneb] 3 ml IH Q6HR PRN #40 vial.neb 04/28/15 [Rx] Metformin [Glucophage] 500 mg PO BID 05/16/15 [History] Budesonide/Formoterol 160/4.5 [Symbicort] 2 puff IH BIDR #5 inhaler 05/18/15 [Rx ] Atorvastatin Calcium [Lipitor] 20 mg PO HS 12/25/16 [History] Roflumilast [Daliresp] 500 mcg PO DAILY 12/25/16 [History] Lisinopril [Zestril] 5 mg PO DAILY 06/10/17 [History] Acetaminophen [Tylenol] 500 mg PO Q6H PRN 10/31/17 [History] Albuterol Sulfate [Proair Hfa] 2 puff IH Q4H PRN 10/31/17 [History] Gabapentin [Neurontin] 600 mg PO BID 10/31/17 [History] levoFLOXacin [Levaquin] 500 mg PO DAILY #3 tablet 11/02/17 [Rx] predniSONE [PredniSONE] See Taper PO TAPER #30 tablet 11/02/17 [Rx] Allergies/Adverse Reactions: 3 Allergy/AdvReac Type Severity Reaction Status Date / Time No Known Allergies Allergy Verified 06/10/17 12:50 Date of admission: 10/31/17 23:23 Primary care physician: Leroy Roman MD - Constitutional Vitals: Temp Pulse Resp BP Pulse Ox 97.5 F L 70 16 123/57 97 11/02/17 07:20 11/02/17 07:20 11/02/17 07:20 11/02/17 07:20 11/02/17 07:20 General appearance: Present: cooperative, mild distress (coughing and wheezing) , A&O X 3, pleasant Exam: GEN: NAD CVS: RRR. S1, S2, No m/r/g RESP: Diminished ABD: Soft, NT, ND, +BS EXT: No edema. 2+ DP. No rashes NEURO: Nonfocal - Patient Status Disposition: Home, Self-Care Condition: Fair Overall status at discharge: patient is progressing back to baseline - Discharge Instructions Instructions: Chronic Obstructive Pulmonary Disease (DC) Follow Up With: Leroy Roman MD [Primary Care Provider] - 11/09/17 3:30 pm - Diet and Activity Activity: increase activity as tolerated Diet: diabetic diet
[2017-11-02] MEDS: Insulin LISPRO 300 UNITS/3 ML VIAL SQ SCH (08:54)
[2017-11-02] MEDS: Gabapentin 300 MG CAPSULE PO SCH (08:55)
[2017-11-02] MEDS: levoFLOXacin 500 MG TABLET PO SCH (08:55)
== END 2017-11-02 10:20 | disposition home or self-care (01) ==
LOC: EMEROO 20:56 → 2NENU 20:56 → 2ANU 23:33
PROVIDERS: ADMIT Pediatrics; ATTEND Internal Medicine

== ENCOUNTER 2018-01-27 19:00 | Inpatient (IN) ==
--- NOTE | 2018-01-27 19:29 | Emergency Department Note ---
Disposition Clinical Impression: Acute exacerbation of chronic obstructive pulmonary disease (COPD), Hypoxia Disposition: Admitted As Inpatient Condition: Good Referrals: Leroy Roman MD [Primary Care Provider] - Forms: ED Satisfaction Letter Time of Disposition: 22:15 SOB HPI - General Chief Complaint: ED Shortness of Breath/Dyspnea Stated Complaint: Shortness of Breath x 2 days Time Seen by Provider: 01/27/18 19:25 Source: patient, EMS Mode of arrival: ambulatory Limitations: no limitations Nursing Notes Reviewed: Yes Vital Signs Reviewed: Yes - History of Present Illness Patient is a 67-year-old female with past medical history of COPD. She states that she has been admitted to the hospital multiple times for COPD exacerbations. She does not currently wear oxygen at home. Is not currently on any steroids or antibiotics. She has never had a BiPAP or intubation on prior hospital admission. She states that for the past 24 hours, she has had increasing shortness of breath, wheezing. Denies any other chest pain, fevers, nausea, vomiting. She has had increased cough above her baseline. Denies any leg swelling, long car rides, recent surgeries, any history of DVTs or PEs. - Related Data Home Medications Medication Instructions Recorded Confirmed Metformin [Glucophage] 500 mg PO BID 05/16/15 10/31/17 Atorvastatin Calcium [Lipitor] 20 mg PO HS 12/25/16 10/31/17 Roflumilast [Daliresp] 500 mcg PO DAILY 12/25/16 10/31/17 Lisinopril [Zestril] 5 mg PO DAILY 06/10/17 10/31/17 Acetaminophen [Tylenol] 500 mg PO Q6H PRN 10/31/17 10/31/17 Albuterol Sulfate [Proair Hfa] 2 puff IH Q4H PRN 10/31/17 10/31/17 Gabapentin [Neurontin] 600 mg PO BID 10/31/17 10/31/17 Previous Rx's Medication Instructions Recorded Ipratropium/Albuterol Neb [Duoneb] 3 ml IH Q6HR PRN #40 vial.neb 04/28/15 Budesonide/Formoterol 160/4.5 2 puff IH BIDR #5 inhaler 05/18/15 [Symbicort] levoFLOXacin [Levaquin] 500 mg PO DAILY #3 tablet 11/02/17 predniSONE [PredniSONE] See Taper PO TAPER #30 tablet 11/02/17 Allergies Allergy/AdvReac Type Severity Reaction Status Date / Time No Known Allergies Allergy Verified 06/10/17 12:50 All systems ED: reviewed and negative except as stated. Constitutional: Denies: fever Cardiovascular: Denies: chest pain Respiratory: Reports: cough, dyspnea, wheezes Gastrointestinal: Denies: abdominal pain, nausea, vomiting, diarrhea Genitourinary: Denies: urgency Integumentary: Denies: rash Neurological: Denies: headache, weakness, numbness, paresthesias Past Medical History - Past Medical History Attestation: Yes The following information was validated with the patient. Source: patient Medical history: Reports: COPD, diabetes, hyperlipidemia, hypertension, peripheral artery disease, renal disease Surgical history: Reports: , cataract Psychiatric history: Reports: no psych history - Social History Smoking Status: Current some day smoker Smokeless Tobacco Status: No Alcohol use: Reports: none Drug use: Reports: none Physical Exam - General Limitations: no limitations General appearance: alert, in no apparent distress - Head Head exam: atraumatic, normocephalic, normal inspection - Eye Eye exam: Present: normal appearance, PERRL, EOMI - ENT ENT exam: normal exam, normal oropharynx, mucous membranes moist - Neck Neck exam: Present: normal inspection, full ROM, trachea midline - Chest Chest inspection: Present: normal inspection, symmetric chest wall rise - Respiratory Respiratory exam: Present: respiratory distress ([id number]), wheezes ( Wheezes throughout, worse on the left). Absent: stridor, accessory muscle use - Cardiovascular Cardiovascular exam: Present: normal rhythm, tachycardia, normal heart sounds - Abdominal Exam Abdominal exam: Present: soft, Non-Tender. Absent: tenderness, distention, guarding, rebound, rigidity - Extremities Exam Extremities exam: Present: normal inspection, full ROM. Absent: tenderness, pedal edema - Neurological Exam Neurological exam: Present: alert, oriented X3 - Psychiatric Psychiatric exam: Present: normal affect, normal mood Course Course Narrative: Patient was tachycardic on presentation but does admit that she used multiple doses of albuterol prior to coming in. She is also satting 93% on 4 L nasal cannula oxygen. Physical exam shows wheezes throughout, worse on the left. Otherwise, the rest of physical exam was fairly benign. Patient given 3 duo nebs, Solu-Medrol. Chest x-ray shows chronic-appearing densities but no specific evidence of any acute cardiopulmonary disease. After treatment, patient is still 91% on 3 L nasal cannula. She does not have any oxygen at home. EKG showed no acute ST changes. Troponin negative. We discussed admission for COPD exacerbation and hypoxia. Patient was agreeable with this plan. Also gave the patient azithromycin. Chest X-Ray 01/27/18 19:29 IMPRESSION: Chronic appearing coarse interstitial densities predominate parahilar regions and lung bases, typical of sequela from smoking or other previous infectious/inflammatory process. No definite radiographic evidence of acute cardiopulmonary disease. D/ / Bernardo Leon / Bernardo Leon Interpreting Provider: Bernardo Leon Vital Signs Temperature 98 F 01/27/18 19:11 Pulse Rate 109 01/27/18 19:11 Respiratory Rate 20 01/27/18 19:11 Blood Pressure 144/70 01/27/18 19:11 O2 Sat by Pulse Oximetry 93 01/27/18 19:11 Temperature 98 F 01/27/18 19:11 Pulse Rate 118 01/27/18 20:30 Respiratory Rate 24 01/27/18 19:43 Blood Pressure 125/61 01/27/18 20:30 O2 Sat by Pulse Oximetry 92 01/27/18 20:30 Oxygen Delivery Oxygen Delivery Nasal Cannula Shortness of Breath/Dyspnea - MDM Narrative Medical decision making narrative: Patient was tachycardic on presentation but does admit that she used multiple doses of albuterol prior to coming in. She is also satting 93% on 4 L nasal cannula oxygen. Physical exam shows wheezes throughout, worse on the left. Otherwise, the rest of physical exam was fairly benign. Patient given 3 duo nebs, Solu-Medrol. Chest x-ray shows chronic-appearing densities but no specific evidence of any acute cardiopulmonary disease. After treatment, patient is still 91% on 3 L nasal cannula. She does not have any oxygen at home. EKG showed no acute ST changes. Troponin negative. We discussed admission for COPD exacerbation and hypoxia. Patient was agreeable with this plan. Also gave the patient azithromycin. - Medical Records Medical records reviewed: Yes I reviewed the patient's medical records. - Lab Data Lab results reviewed: Yes I reviewed the patient's lab results. Result diagrams: 01/27/18 19:11 01/27/18 19:11 Lab Results 01/27/18 01/27/18 01/27/18 Range/Units 19:11 19:11 19:11 WBC 7.1 (4.3-11.1) K/mcL RBC 4.62 (3.82-4.97) M/mcL Hgb 13.6 (11.5-15.4) g/dL Hct 42.5 (35.3-44.9) % MCV 92.0 (83.0-100.0) fL MCH 29.4 (28.0-33.3) pg MCHC 32.0 (31.6-35.5) g/dL RDW 13.9 (11.5-14.5) % Plt Count 145 (140-400) K/mcL MPV 11.9 (9.4-12.4) fL Immature Gran % 0.3 (0-4) % Seg Neutrophils % 70.5 % Lymphocytes % 13.5 % Monocytes % 6.2 % Eosinophils % 9.1 % Basophils % 0.4 % Neutrophils # 5.0 (1.6-8.9) K/mcL Lymphocytes # 1.0 (0.6-4.6) K/mcL Monocytes # 0.4 (0.0-1.3) K/mcL Eosinophils # 0.7 H (0.0-0.6) K/mcL Basophils # 0.0 (0.0-0.2) K/mcL Sodium 137 (136-145) mEq/L Potassium 4.2 (3.5-5.1) mEq/L Chloride 107 (98-107) mEq/L Carbon Dioxide 22 L (23-29) mEq/L BUN 17 (8-23) mg/dL Creatinine 0.99 (0.60-1.20) mg/dL Est GFR ( Amer) > 60 (> 60) Est GFR (Non-Af Amer) 56 L (> 60) BUN/Creatinine Ratio 17 (6-26) Glucose 136 H (70-105) mg/dL Calculated Osmolality 288 (280-300) Lactic Acid 0.6 (0.5-2.2) mmol/L Calcium 9.7 (8.6-10.3) mg/dL Troponin I < 0.03 (< 0.04) ng/mL - Radiology Data Radiology results reviewed: Yes I reviewed the patient's radiology results. Chest X-Ray 01/27/18 19:29 IMPRESSION: Chronic appearing coarse interstitial densities predominate parahilar regions and lung bases, typical of sequela from smoking or other previous infectious/inflammatory process. No definite radiographic evidence of acute cardiopulmonary disease. D/ / Bernardo Leon / Bernardo Leon Interpreting Provider: Bernardo Leon - EKG Data EKG attestation: Yes I reviewed and interpreted this EKG. EKG results narrative: 01/27/2018 and 19:22. Sinus tachycardia. Rate 108. HI 140. QRS 91. QTC 379. No acute ST elevation or depression. Drew.Thompson - Gerry Situation: Demographics, MOA Background: Presenting Complaint, Relevant PMH, Meds, & Allergies Assessment: Vital Signs, Course and respsone to treatment, Exam Concerns, Patient/Family Expectation, Pertinant Lab Results, Outstanding Labs Recommendation: Barrier(s) to disposition, Recommendation based on pending studies, treatments, or consults SKimberly Report Given to: Dr. Martínez Garrett Repor Time: 22:16
[2018-01-27] MEDS ORDERED: methylPREDNISolone 125 MG/2 ML VIAL IVP ONE (19:30)
[2018-01-27] MEDS ORDERED: Ipratropium/Albuterol Neb 3 ML IH ONE (19:30)
[2018-01-27 19:41] LABS: Basophils % 0.4 %; Eosinophils # 0.7 K/mcL (0.0-0.6); Eosinophils % 9.1 %; Hematocrit 42.5 % (35.3-44.9); Hemoglobin 13.6 g/dL (11.5-15.4); Immature Granulocytes % 0.3 % (0-4); Lymphocytes % 13.5 %; Mean Corpuscular Hemoglobin 29.4 pg (28.0-33.3); Mean Platelet Volume 11.9 fL (9.4-12.4); Monocytes # 0.4 K/mcL (0.0-1.3); Monocytes % 6.2 %; Platelet Count 145 K/mcL (140-400); Red Blood Count 4.62 M/mcL (3.82-4.97); Red Cell Distribution Width 13.9 % (11.5-14.5); Segmented Neutrophils % 70.5 %
[2018-01-27 19:50] LABS: BUN/Creatinine Ratio 17 (6-26); Blood Urea Nitrogen 17 mg/dL (8-23); Calcium 9.7 mg/dL (8.6-10.3); Carbon Dioxide 22 mEq/L (23-29); Chloride 107 mEq/L (98-107); Glucose 136 mg/dL (70-105); Osmolality,Calculated 288 (280-300); Potassium 4.2 mEq/L (3.5-5.1); Sodium 137 mEq/L (136-145); Troponin I < 0.03 ng/mL (< 0.04); eGFR For African Americans > 60 (> 60); eGFR For Non-African Americans 56 (> 60)
--- NOTE | 2018-01-27 19:54 | Emergency Department Note ---
Disposition Clinical Impression: Acute exacerbation of chronic obstructive pulmonary disease (COPD) Disposition: Still a Patient Referrals: Leroy Roman MD [Primary Care Provider] - Forms: ED Satisfaction Letter General Adult HPI - General Chief complaint: ED Shortness of Breath/Dyspnea Stated complaint: Shortness of Breath x 2 days Time Seen by Provider: 01/27/18 19:25 Source: patient, EMS Mode of arrival: ambulatory Limitations: no limitations - History of Present Illness Pain Scale: 0 - Related Data Home Medications Medication Instructions Recorded Confirmed Metformin [Glucophage] 500 mg PO BID 05/16/15 10/31/17 Atorvastatin Calcium [Lipitor] 20 mg PO HS 12/25/16 10/31/17 Roflumilast [Daliresp] 500 mcg PO DAILY 12/25/16 10/31/17 Lisinopril [Zestril] 5 mg PO DAILY 06/10/17 10/31/17 Acetaminophen [Tylenol] 500 mg PO Q6H PRN 10/31/17 10/31/17 Albuterol Sulfate [Proair Hfa] 2 puff IH Q4H PRN 10/31/17 10/31/17 Gabapentin [Neurontin] 600 mg PO BID 10/31/17 10/31/17 Previous Rx's Medication Instructions Recorded Ipratropium/Albuterol Neb [Duoneb] 3 ml IH Q6HR PRN #40 vial.neb 04/28/15 Budesonide/Formoterol 160/4.5 2 puff IH BIDR #5 inhaler 05/18/15 [Symbicort] levoFLOXacin [Levaquin] 500 mg PO DAILY #3 tablet 11/02/17 predniSONE [PredniSONE] See Taper PO TAPER #30 tablet 11/02/17 Allergies Allergy/AdvReac Type Severity Reaction Status Date / Time No Known Allergies Allergy Verified 06/10/17 12:50 Past Medical History - Past Medical History Medical history: Reports: COPD, diabetes, hyperlipidemia, hypertension, peripheral artery disease, renal disease Surgical history: Reports: , cataract Psychiatric history: Reports: no psych history - Social History Smoking Status: Current some day smoker Smokeless Tobacco Status: No Alcohol use: Reports: none Drug use: Reports: none Physical Exam - General Limitations: no limitations General appearance: alert, in no apparent distress Course - Reevaluation(s) Reevaluation #1: Attestation note I examined this patient and my medical decision-making was reviewed with the emergency medicine resident. I agree with the documented findings, disposition and treatment plan as described except to the extent set forth below. Patient seen with emergency medicine resident Dr. Alpesh Patel, Please see a copy of his note for details of the H&P, ED evaluation, management and disposition. I have independently evaluated the patient and confirmed appropriate portions of the history and physical exam. Briefly: 67-year-old female history of COPD smoker home O2 comes in with wheezing cough and shortness of breath bilateral expiratory wheezes diffusely satting in the high 80s low 90s. Patient getting a chest x-ray screening labs DuoNeb steroids. Admission anticipated. Providing 30 minutes critical care service for this patient. Disposition pending Time: 19:53 Vital Signs Temperature 98 F 01/27/18 19:11 Pulse Rate 109 01/27/18 19:11 Respiratory Rate 20 01/27/18 19:11 Blood Pressure 144/70 01/27/18 19:11 O2 Sat by Pulse Oximetry 93 01/27/18 19:11 Temperature 98 F 01/27/18 19:11 Pulse Rate 109 01/27/18 19:11 Respiratory Rate 24 01/27/18 19:43 Blood Pressure 144/70 01/27/18 19:11 O2 Sat by Pulse Oximetry 94 01/27/18 19:43 Oxygen Delivery Oxygen Delivery Nasal Cannula Medical Decision Making - Lab Data Result diagrams: 01/27/18 19:11 01/27/18 19:11 Lab Results 01/27/18 01/27/18 01/27/18 Range/Units 19:11 19:11 19:11 WBC 7.1 (4.3-11.1) K/mcL RBC 4.62 (3.82-4.97) M/mcL Hgb 13.6 (11.5-15.4) g/dL Hct 42.5 (35.3-44.9) % MCV 92.0 (83.0-100.0) fL MCH 29.4 (28.0-33.3) pg MCHC 32.0 (31.6-35.5) g/dL RDW 13.9 (11.5-14.5) % Plt Count 145 (140-400) K/mcL MPV 11.9 (9.4-12.4) fL Immature Gran % 0.3 (0-4) % Seg Neutrophils % 70.5 % Lymphocytes % 13.5 % Monocytes % 6.2 % Eosinophils % 9.1 % Basophils % 0.4 % Neutrophils # 5.0 (1.6-8.9) K/mcL Lymphocytes # 1.0 (0.6-4.6) K/mcL Monocytes # 0.4 (0.0-1.3) K/mcL Eosinophils # 0.7 H (0.0-0.6) K/mcL Basophils # 0.0 (0.0-0.2) K/mcL Sodium 137 (136-145) mEq/L Potassium 4.2 (3.5-5.1) mEq/L Chloride 107 (98-107) mEq/L Carbon Dioxide 22 L (23-29) mEq/L BUN 17 (8-23) mg/dL Creatinine 0.99 (0.60-1.20) mg/dL Est GFR ( Amer) > 60 (> 60) Est GFR (Non-Af Amer) 56 L (> 60) BUN/Creatinine Ratio 17 (6-26) Glucose 136 H (70-105) mg/dL Calculated Osmolality 288 (280-300) Lactic Acid 0.6 (0.5-2.2) mmol/L Calcium 9.7 (8.6-10.3) mg/dL Troponin I < 0.03 (< 0.04) ng/mL
[2018-01-27] MEDS ORDERED: Azithromycin 500 MG in D5% in Water 250 ML IVPB ONE (21:02)
[2018-01-27] MEDS ORDERED: Naloxone 0.4 MG/ML INJ IVP PRN (23:25)
[2018-01-27] MEDS ORDERED: Ipratropium/Albuterol Neb 3 ML IH PRN (23:27)
[2018-01-27] MEDS ORDERED: *HR* Dextrose 50 % in Water (Syg) 50 ML SYRINGE IVP PRN (23:28)
[2018-01-27] MEDS ORDERED: D5% in Water 1,000 ML IVC PRN (23:28)
[2018-01-27] MEDS ORDERED: Dextrose Gel 15 GM/37.5 ML TUBE PO PRN ×2 (23:28)
--- NOTE | 2018-01-27 23:48 | Internal Med History&Physical ---
Date of Encounter: 01/27/18 Time of Encounter: 23:00 Internal Medicine - H&P: HPI Chief complaint: Shortness of breath Admitted From: Home Plans for Post Hospital Care: Home History of present illness: Ms. Gavin is a 67 year old female present to ER for worsening shortness of breath for 2 days. Past medical history is significant for COPD, diabetes, and hypertension. Patient said she has increased the shortness of breath for 2 days. With nonproductive cough. Patient denies chest pain, nausea, vomiting, or fever. In the emergency room, patient was found bilateral wheezing. Chest x-ray shows no pneumonia but worsening inflammation. Patient was a consider COPD exacerbation and was treated with azithromycin, Solu-Medrol, and DuoNeb. After treatment, patient's symptoms has improved. Patient was admitted for further management. Past Med Surg Social Fam HX - Past Medical History Medical history: COPD, diabetes, hyperlipidemia, hypertension, peripheral artery disease, renal disease Additional medical history: tip of right 3rd digit amputated Psychiatric history: no psych history - Past Surgical History Surgical History: , cataract Additional surgical history: SPUR REMOVED FOOT, TIP OF 3RD DIGIT R HAND, cataract - Social History Smoking Status: Current some day smoker Smokeless Tobacco Status: No Alcohol use: none Drug use: none - Family History Father Adopted: No Family Member Ethnicity: Non- Living Status: Hx Family Cardiac Disorders: Yes (ME at age 45) Hx Family Respiratory Disorders: Yes Hx Family Cancer: Yes Hx Family GI Disorders: No Hx Family Endocrine Disorder: Yes Hx Family Neuromuscular Disorders: No Hx Family Neurologic Disorders: No Hx Family HEENT Disorders: No Hx Family Autoimmune Disorders: No Brother Living Status: Still Living Hx Family Cardiac Disorders: Yes (CABG at age 52) Hx Family Endocrine Disorder: Yes (DM) Internal Medicine - H&P: Meds Ipratropium/Albuterol Neb [Duoneb] 3 ml IH Q6HR PRN #40 vial.neb 04/28/15 [Rx] Metformin [Glucophage] 500 mg PO BID 05/16/15 [History] Budesonide/Formoterol 160/4.5 [Symbicort] 2 puff IH BIDR #5 inhaler 05/18/15 [Rx ] Atorvastatin Calcium [Lipitor] 20 mg PO HS 12/25/16 [History] Roflumilast [Daliresp] 500 mcg PO DAILY 12/25/16 [History] Lisinopril [Zestril] 5 mg PO DAILY 06/10/17 [History] Acetaminophen [Tylenol] 500 mg PO Q6H PRN 10/31/17 [History] Albuterol Sulfate [Proair Hfa] 2 puff IH Q4H PRN 10/31/17 [History] Gabapentin [Neurontin] 600 mg PO BID 10/31/17 [History] levoFLOXacin [Levaquin] 500 mg PO DAILY #3 tablet 11/02/17 [Rx] predniSONE [PredniSONE] See Taper PO TAPER #30 tablet 11/02/17 [Rx] 3 Allergy/AdvReac Type Severity Reaction Status Date / Time No Known Allergies Allergy Verified 06/10/17 12:50 All Systems PM: A 10-system review of systems was performed and is negative for pertinent findings except as documented above in the HPI. - Constitutional Vitals: Temp Pulse Resp BP Pulse Ox 98 F 106 24 135/56 93 01/27/18 19:11 01/27/18 22:30 01/27/18 19:43 01/27/18 22:30 01/27/18 22:30 General appearance: Present: mild distress, A&O X 3, answers questions appropriately - Head Head exam: Present: atraumatic, normocephalic - Eye Eye exam: Present: PERRL, conjuntiva pink, sclera anicteric Pupils: Present: PERRL - Neck Neck exam general surgery: Present: supple, trachea midline. Absent: lymphadenopathy - Respiratory Respiratory exam: Present: CTAB, respiratory distress, wheezes (Diffuse wheezes bilaterally). Absent: accessory muscle use, rales, rhonchi - Cardiovascular Cardiovascular exam: Present: RRR, +S1, +S2. Absent: diastolic murmur, gallop, rubs, systolic murmur - GI/Abdominal GI/Abdominal exam: Present: normal bowel sounds, soft, no peritoneal signs. Absent: distended, tenderness - Extremities Exam Extremities exam: Present: warm, radial pulses palpable and symmetrical. Absent : calf tenderness, cyanotic, pedal edema - Neurological Exam Neurological exam: Present: CN II-XII intact, oriented X3, no focal deficits. Absent: pronater drift, facial droop, speech deficit - Skin Skin exam: Present: dry, intact Internal Med - H&P Results - Labs CBC & Chem 7: 01/27/18 19:11 01/27/18 19:11 - Assessment and plan (1) DVT prophylaxis Current Visit: Yes Status: Acute Assessment and plan: Heparin subcutaneously (2) Acute exacerbation of chronic obstructive pulmonary disease (COPD) Current Visit: Yes Status: Acute Assessment and plan: Patient has increased wheezing and the shortness of breath. History of COPD. Consider COPD exacerbation. - Place patient on continuous pulse oximetry monitoring - Started on azithromycin, Solu-Medrol, and the DuoNeb - Closely monitor patient (3) Diabetes mellitus type II, uncontrolled Current Visit: No Status: Chronic Assessment and plan: Place patient on sliding [place] insulin coverage Qualifiers: Diabetes mellitus ad terminal makeup operator insulin use: without ad terminal makeup operator use Diabetes mellitus complication status: without complication Qualified Code(s): E11.65 - Type 2 diabetes mellitus with hyperglycemia (4) HTN (hypertension) Current Visit: No Status: Chronic Assessment and plan: Continue home medication lisinopril Qualifiers: Hypertension type: essential hypertension Qualified Code(s): I10 - Essential (primary) hypertension - Time Spent With Patient Total time spent is greater than 50% in coordination of care (as documented) at patient's floor/unit and/or counseling patient: 40 minutes Greater than 35 minutes
[2018-01-28] MEDS: Ipratropium/Albuterol Neb 3 ML IH SCH ×7 (00:06→23:36)
[2018-01-28] MEDS: methylPREDNISolone 125 MG/2 ML VIAL IVP SCH ×4 (01:44→23:40)
[2018-01-28 04:36] LABS: Basophils % 0.2 %; Eosinophils % 0.5 %; Hematocrit 38.9 % (35.3-44.9); Hemoglobin 12.5 g/dL (11.5-15.4); Immature Granulocytes % 0.7 % (0-4); Lymphocytes # 0.4 K/mcL (0.6-4.6); Lymphocytes % 9.7 %; Mean Corpuscular HGB Conc 32.1 g/dL (31.6-35.5); Mean Corpuscular Hemoglobin 29.2 pg (28.0-33.3); Mean Corpuscular Volume 90.9 fL (83.0-100.0); Monocytes % 0.9 %; Neutrophils # 3.9 K/mcL (1.6-8.9); Platelet Count 152 K/mcL (140-400); Red Blood Count 4.28 M/mcL (3.82-4.97); Red Cell Distribution Width 13.8 % (11.5-14.5)
[2018-01-28 04:55] LABS: BUN/Creatinine Ratio 21 (6-26); Blood Urea Nitrogen 20 mg/dL (8-23); Calcium 9.6 mg/dL (8.6-10.3); Carbon Dioxide 23 mEq/L (23-29); Chloride 105 mEq/L (98-107); Glucose 328 mg/dL (70-105); Magnesium 1.9 mg/dL (1.6-2.6); Osmolality,Calculated 295 (280-300); Phosphorous 3.1 mg/dL (2.7-4.5); Potassium 4.6 mEq/L (3.5-5.1); Sodium 135 mEq/L (136-145); eGFR For African Americans > 60 (> 60); eGFR For Non-African Americans 59 (> 60)
[2018-01-28] MEDS: *HR* Heparin 5,000 UNIT/ML VIAL SQ SCH ×2 (06:31→18:57)
[2018-01-28] MEDS: Insulin LISPRO 300 UNITS/3 ML VIAL SQ SCH ×4 (08:57→21:06)
[2018-01-28] MEDS ORDERED: Budesonide/Formoterol 160/4.5 MDI IH SCH (10:00)
--- NOTE | 2018-01-28 14:01 | Internal Med Progress Note ---
Date of Encounter: 01/28/18 Time of Encounter: 13:57 - Assessment and plan (1) Acute exacerbation of chronic obstructive pulmonary disease (COPD) Current Visit: Yes Status: Acute Assessment and plan: Patient has increased wheezing and the shortness of breath. History of COPD. Consider COPD exacerbation. - Place patient on continuous pulse oximetry monitoring - Started on azithromycin, Solu-Medrol, and the DuoNeb - Closely monitor patient 01/28-acute on chronic hypoxic respiratory failure due to acute exacerbation of COPD patient continues to be on 4 L of oxygen. My understanding is the patient has home oxygen but does use it intermittently only. I will continue to have the nurse titrate her down. We will continue pulse oximetry at this point. Continue azithromycin and Solu-Medrol every 8 hours as well as duo nebs. (2) HTN (hypertension) Current Visit: No Status: Chronic Assessment and plan: Continue to monitor home medication lisinopril Qualifiers: Hypertension type: essential hypertension Qualified Code(s): I10 - Essential (primary) hypertension (3) Diabetes mellitus type II, uncontrolled Current Visit: No Status: Chronic Assessment and plan: Continue to monitor with slight scale insulin and then Accu-Cheks Qualifiers: Diabetes mellitus molasses feed mixer insulin use: without molasses feed mixer use Diabetes mellitus complication status: without complication Qualified Code(s): E11.65 - Type 2 diabetes mellitus with hyperglycemia (4) DVT prophylaxis Current Visit: Yes Status: Acute Assessment and plan: Heparin subcutaneously - Time Spent With Patient Total time spent is greater than 50% in coordination of care (as documented) at patient's floor/unit and/or counseling patient: 25 - 35 minutes - Subjective Interval history: Continues to have intermittent shortness of breath. She states that she usually stays in the hospital for 3-5 days whenever she had COPD exacerbations. She continues to smoke and is currently down to 3-4 cigarettes a day - Constitutional Vitals: Temp Pulse Resp BP Pulse Ox 97.7 F 85 18 111/56 96 01/28/18 11:29 01/28/18 11:29 01/28/18 11:42 01/28/18 11:29 01/28/18 11:46 General appearance: Present: mild distress, A&O X 3, answers questions appropriately Exam: GENERAL: Alert, moderate distress, cooperative, able to finish her sentences. EYES: PERRLA, EOMI EARS: External ears normal, canals clear OROPHARYNX: Lips, mucosa, and tongue normal. Teeth and gums normal. Oropharynx normal. NECK: No jugulovenous distention, No carotid bruits, Carotid pulse normal contour, Supple LUNGS: Bilateral and expiratory wheezing heard across both lung galo CARDIAC: Normal S1 and S2; no rubs, murmurs, or gallops ABDOMEN: Abdomen soft, non-tender, BS normal, No masses or organomegaly Rest of the exam is non contributory Internal Medicine: Result - Labs CBC & Chem 7: 01/28/18 04:16 01/28/18 04:16 Labs: Short CBC 01/28/18 Range/Units 04:16 WBC 4.4 (4.3-11.1) K/mcL Hgb 12.5 (11.5-15.4) g/dL Hct 38.9 (35.3-44.9) % Plt Count 152 (140-400) K/mcL Neutrophils # 3.9 (1.6-8.9) K/mcL BMP 01/28/18 04:16 Sodium 135 L Potassium 4.6 Chloride 105 Carbon Dioxide 23 BUN 20 Creatinine 0.94 Glucose 328 H Calcium 9.6 Consult Discharge Plan - Plan Referrals: Leroy Roman MD [Primary Care Provider] -
[2018-01-28] MEDS: Gabapentin 300 MG CAPSULE PO SCH ×2 (15:29→21:07)
[2018-01-28] MEDS: Azithromycin 500 MG in D5% in Water 250 ML IVPB SCH (18:56)
--- NOTE | 2018-01-28 19:07 | Electrocardiograph Report ---
[address] [place] [address] Test Date: 2018-01-27 Pat Name: Gilberto Gavin Department: 103 Room: 3A Gender: F Slider Assembler: CT : 1950 Requested By: Alpesh Patel Order Number: [id number] Reading MD: José Miguel Pedro Measurements Intervals [place] Rate: 108 P: 65 IA: 140 QRS: 47 QRSD: 91 T: 68 QT: 315 QTc: 379 Interpretive Statements SINUS TACHYCARDIA Electronically Signed On 01-28-2018 19:05:09 EDT by José Miguel Pedro
[2018-01-29] MEDS: Ipratropium/Albuterol Neb 3 ML IH SCH ×6 (03:30→23:08)
[2018-01-29] MEDS: *HR* Heparin 5,000 UNIT/ML VIAL SQ SCH ×2 (05:03→16:57)
[2018-01-29] MEDS: Gabapentin 300 MG CAPSULE PO SCH ×3 (08:54→20:08)
[2018-01-29] MEDS: methylPREDNISolone 125 MG/2 ML VIAL IVP SCH ×2 (08:54→20:08)
[2018-01-29] MEDS: Insulin LISPRO 300 UNITS/3 ML VIAL SQ SCH ×4 (08:54→20:09)
--- NOTE | 2018-01-29 13:18 | Internal Med Progress Note ---
Date of Encounter: 01/29/18 Time of Encounter: 13:16 - Assessment and plan (1) Acute exacerbation of chronic obstructive pulmonary disease (COPD) Current Visit: Yes Status: Acute Assessment and plan: Patient has increased wheezing and the shortness of breath. History of COPD. Consider COPD exacerbation. - Place patient on continuous pulse oximetry monitoring - Started on azithromycin, Solu-Medrol, and the DuoNeb - Closely monitor patient 01/28-acute on chronic hypoxic respiratory failure due to acute exacerbation of COPD patient continues to be on 4 L of oxygen. My understanding is the patient has home oxygen but does use it intermittently only. I will continue to have the nurse titrate her down. We will continue pulse oximetry at this point. Continue azithromycin and Solu-Medrol every 8 hours as well as duo nebs. 01/29-symptomatically better today. I will space out her Solu-Medrol to every 12 hours today and continue duo nebs. Today will be the last day of azithromycin hoping to transition her to oral steroids tomorrow and then discharge home. (2) HTN (hypertension) Current Visit: No Status: Chronic Assessment and plan: Continue to monitor home medication lisinopril Qualifiers: Hypertension type: essential hypertension Qualified Code(s): I10 - Essential (primary) hypertension (3) Diabetes mellitus type II, uncontrolled Current Visit: No Status: Chronic Assessment and plan: Continue to monitor with slight scale insulin and then Accu-Cheks Qualifiers: Diabetes mellitus usp insulin use: without photography spotter use Diabetes mellitus complication status: without complication Qualified Code(s): E11.65 - Type 2 diabetes mellitus with hyperglycemia (4) DVT prophylaxis Current Visit: Yes Status: Acute Assessment and plan: Heparin subcutaneously - Time Spent With Patient Total time spent is greater than 50% in coordination of care (as documented) at patient's floor/unit and/or counseling patient: 25 - 35 minutes - Subjective Interval history: Shortness of breath seems to be improving. She denies any new fevers or chills at this point - Constitutional Vitals: Temp Pulse Resp BP Pulse Ox 97.2 F L 82 14 122/58 91 01/29/18 11:47 01/29/18 11:47 01/29/18 11:47 01/29/18 11:47 01/29/18 11:47 General appearance: Present: mild distress, A&O X 3, answers questions appropriately Exam: GENERAL: Alert, no distress, cooperative EYES: PERRLA, EOMI EARS: External ears normal, canals clear OROPHARYNX: Lips, mucosa, and tongue normal. Teeth and gums normal. Oropharynx normal. NECK: No jugulovenous distention, No carotid bruits, Carotid pulse normal contour, Supple LUNGS: Scattered rhonchi across bilateral lung galo CARDIAC: Normal S1 and S2; no rubs, murmurs, or gallops ABDOMEN: Abdomen soft, non-tender, BS normal, No masses or organomegaly Rest of the exam is non contributory Internal Medicine: Result - Labs CBC & Chem 7: 01/28/18 04:16 01/28/18 04:16 Consult Discharge Plan - Plan Referrals: Leroy Roman MD [Primary Care Provider] -
[2018-01-29] MEDS: Azithromycin 500 MG in D5% in Water 250 ML IVPB SCH (17:28)
[2018-01-30] MEDS: Ipratropium/Albuterol Neb 3 ML IH SCH ×4 (03:55→16:10)
[2018-01-30] MEDS: *HR* Heparin 5,000 UNIT/ML VIAL SQ SCH (06:55)
[2018-01-30] MEDS: Gabapentin 300 MG CAPSULE PO SCH (08:50)
[2018-01-30] MEDS: methylPREDNISolone 125 MG/2 ML VIAL IVP SCH (08:51)
[2018-01-30] MEDS: Insulin LISPRO 300 UNITS/3 ML VIAL SQ SCH ×2 (08:51→12:30)
--- NOTE | 2018-01-30 10:25 | Discharge Summary ---
<Radha Morales - Last Filed: 01/30/18 16:15> - NOTES TO OUTPATIENT PROVIDER Notes to Outpatient Provider: Ms. Gavin presensted to the ED due to increased shortness of breath ongoing for 2 days prior to presentation. Her chest x-ray was not concerning for pneumonia and was similar to the one three months ago. She required supplemental oxygen and has been weaned to 1 liter. She was treated with solu-medrol, azithromycin for three days and duonebs. She is improving and qualified for home supplement oxygen. She will require 1.5 liters. Date of Encounter: 01/30/18 Time of Encounter: 10:20 - Discharge Diagnosis (1) Acute exacerbation of chronic obstructive pulmonary disease (COPD) Priority: Primary Status: Acute Assessment and Plan: Acute on chronic hypoxic respiratory failure due to acute exacerbation of COPD. History of COPD. - Place patient on continuous pulse oximetry monitoring - Weaned to 1 liter of supplemental oxygen - On IV Solu-Medrol, and DuoNeb - Received azithromycin for two days - Getting oxygen challenge, this morning on 1 liter of supplemental oxygen with 92% oxygen saturation. We will continue pulse oximetry at this point. Disposition: - Will require 1.5 liters supplement oxygen outpatient - Tapering prednisone outpatient 40 mg first 4 days, 30 mg for 4 days, 20 mg for 4 more days and 10 mg for last 4 days - Outpatient pulmonology appointment . (2) HTN (hypertension) Priority: Secondary Status: Chronic Assessment and Plan: Continue to monitor - Home medication lisinopril - Blood pressure stable, today 124/68 Qualifiers: Hypertension type: essential hypertension Qualified Code(s): I10 - Essential (primary) hypertension (3) Diabetes mellitus type II, uncontrolled Priority: Secondary Status: Chronic Assessment and Plan: Continue to monitor glucose - Glucose this morning 199 - Most likely elevated due to IV prednisone - Continue sliding scale and then Accu-Checks - Outpatient she can continue home antiglycemics Qualifiers: Diabetes mellitus joint terminal attack controller insulin use: without fpc use Diabetes mellitus complication status: without complication Qualified Code(s): E11.65 - Type 2 diabetes mellitus with hyperglycemia (4) DVT prophylaxis Priority: Secondary Status: Acute Assessment and Plan: Heparin subcutaneously BID during admission Hospital course: Ms. Gavin is a 67 year old female who presented to the ED for shortness of breath. She also complained of nonproductive cough. She has history of COPD diabetes, hyerlipidemia, peripheral artery disease and hypertension. Chest x- ray at admission was unchanged from three months ago and showed no acute processes. During her stay she received azithromycin for 3 days, IV solu-medrol and DuoNeb. She also required 2 liters of supplemental oxygen and was weaned. She will require 1.5 liters of oxygen outpatient. She is on a prednisone taper: 40 mg first 4 days, 30 mg for 4 days, 20 mg for 4 more days and 10 mg for last 4 days. She also has an establish care appointment with pulmonology due to her frequent COPD exacerabation, she requires a close follow with a chha. Discharge discussed with: patient - Time Spent with Patient Total time spent providing and/or coordinating discharge services: - Discharge Medications Prescriptions: predniSONE [PredniSONE] 10 mg PO DAILY #42 tablet Home Medications: Atorvastatin Calcium [Lipitor] 20 mg PO HS 12/25/16 [History] Lisinopril [Zestril] 5 mg PO DAILY 06/10/17 [History] Acetaminophen [Tylenol] 500 mg PO Q6H PRN 10/31/17 [History] Albuterol Sulfate [Proair Hfa] 2 puff IH Q4H PRN 10/31/17 [History] Gabapentin [Neurontin] 600 mg PO TID 10/31/17 [History] Budesonide/Formoterol 160/4.5 [Symbicort 160/4.5] 2 puff IH BIDR 01/28/18 [ History] Ipratropium/Albuterol Neb [Duoneb] 3 ml IH Q6HR 01/28/18 [History] metFORMIN [Glucophage] 500 mg PO BIDWM 01/28/18 [History] predniSONE [PredniSONE] 10 mg PO DAILY #42 tablet 01/30/18 [Rx] Allergies/Adverse Reactions: 3 Allergy/AdvReac Type Severity Reaction Status Date / Time No Known Allergies Allergy Verified 01/28/18 09:51 Date of admission: 01/27/18 23:41 Primary care physician: Leroy Roman MD Discharging clinician: Radha Morales - Constitutional Vitals: Temp Pulse Resp BP Pulse Ox 97.7 F 73 14 124/68 94 01/30/18 07:40 01/30/18 07:40 01/30/18 07:40 01/30/18 07:40 01/30/18 07:40 General appearance: Present: mild distress, A&O X 3, answers questions appropriately - Head Head exam: Present: atraumatic, normocephalic - Eye Eye exam: Present: EOMI, sclera anicteric - ENT ENT exam: Present: mucous membranes moist - Respiratory Respiratory exam: Present: wheezes. Absent: rales, stridor - Cardiovascular Cardiovascular exam: Present: RRR. Absent: gallop, JVD - GI/Abdominal GI/Abdominal exam: Present: normal bowel sounds, soft. Absent: firm, rigid - Extremities Exam Extremities exam: Present: warm. Absent: calf tenderness, pedal edema - Psychiatric Psychiatric exam: Present: agitated, flat affect - Patient Status Disposition: Home, Self-Care Condition: Fair Functional capacity at discharge: independent ambulation Overall status at discharge: patient is progressing back to baseline - Discharge Instructions Instructions: Chronic Obstructive Pulmonary Disease (DC) Follow Up With: Wing Smith MD [Partnered Physician] - 02/12/18 1:45 pm (COPD exacerbation establish with a chha) Leroy Roman MD [Primary Care Provider] - - Diet and Activity Activity: resume usual activities as tolerated Diet: diabetic diet <Derek Whiteside - Last Filed: 01/30/18 21:51> Date of Encounter: 01/30/18 - Discharge Diagnosis (1) HTN (hypertension) Status: Chronic Qualifiers: Hypertension type: essential hypertension Qualified Code(s): I10 - Essential (primary) hypertension (2) Diabetes mellitus type II, uncontrolled Status: Chronic Qualifiers: Diabetes mellitus joint terminal attack controller insulin use: without fpc use Diabetes mellitus complication status: without complication Qualified Code(s): E11.65 - Type 2 diabetes mellitus with hyperglycemia (3) Acute exacerbation of chronic obstructive pulmonary disease (COPD) Status: Acute (4) DVT prophylaxis Status: Acute Hospital course: Ms. Gavin is a 67 year old female - Time Spent with Patient Total time spent providing and/or coordinating discharge services: Date of admission: 01/27/18 23:41 Primary care physician: Leroy Roman MD - Constitutional Vitals: Temp Pulse Resp BP Pulse Ox 97.6 F 80 18 121/64 94 01/30/18 11:26 01/30/18 11:26 01/30/18 16:11 01/30/18 11:26 01/30/18 16:11 - Attending Attestation I have examined the patient and reviewed the discharge summary obtained and documented by the resident and I personally participated in the qeusada components. and formulation of the plan of care. I have discussed the case and management of the patient's care. COPD excerbation who is also current smoker ( cessation educated ) albeit she has cut down significantly per history Admitted for COPD excarbation and now improved on IV steroids. Given a prolonged taper and recommended f/u w Pulmonology at outpatient basis. Finished a course of Abx in house. rest of plan as per documentation
[2018-01-30 11:51] VITALS: BP 121/64
== END 2018-01-30 16:29 | disposition home or self-care (01) | DRG 190 ==
LOC: 3ANU 19:00 → EMEROO 19:00 → OBSVTOIN 23:41 → SUATTDRO 23:41 → 3ANU 01-28 00:10
PROVIDERS: ADMIT Internal Medicine; ATTEND Internal Medicine

== ENCOUNTER 2022-04-06 22:03 | Inpatient (IN) ==
[2022-04-06] MEDS ORDERED: methylPREDNISolone 125 MG/2 ML VIAL IVP ONE (22:51)
[2022-04-06] MEDS: Ipratropium/Albuterol Neb 3 ML IH PRN (23:01)
[2022-04-06 23:04] LABS: Basophils % 0.2 %; Eosinophils # 0.1 K/mcL (0.0-0.6); Eosinophils % 0.4 %; Hematocrit 44.3 % (35.3-44.9); Hemoglobin 13.5 g/dL (11.5-15.4); Immature Granulocytes % 0.5 % (0-4); Lymphocytes # 0.7 K/mcL (0.6-4.6); Lymphocytes % 4.4 %; Mean Corpuscular HGB Conc 30.5 g/dL (31.6-35.5); Mean Corpuscular Hemoglobin 29.3 pg (28.0-33.3); Mean Corpuscular Volume 96.3 fL (83.0-100.0); Mean Platelet Volume 12.2 fL (9.4-12.4); Monocytes # 0.6 K/mcL (0.0-1.3); Monocytes % 3.8 %; Platelet Count 252 K/mcL (140-400); Red Cell Distribution Width 14.8 % (11.5-14.5); Segmented Neutrophils % 90.7 %; White Blood Count 16.5 K/mcL (4.3-11.1)
[2022-04-06 23:14] LABS: Potassium 4.8 mEq/L (3.5-5.1); Sodium 136 mEq/L (136-145)
[2022-04-06 23:15] LABS: BUN/Creatinine Ratio 31 (6-26); Blood Urea Nitrogen 26 mg/dL (8-23); Calcium 10.2 mg/dL (8.6-10.3); Carbon Dioxide 25 mEq/L (23-29); Chloride 104 mEq/L (98-107); Glucose 154 mg/dL (70-105); Magnesium 1.8 mg/dL (1.6-2.6); Osmolality,Calculated 290 (280-300)
[2022-04-06 23:17] LABS: VBG HCO3 28 mEq/L (21-27); VBG PCO2 63 mmHg (41-51); VBG PH 7.25 pH Units (7.32-7.42); VBG PO2 50 mmHg (25-50)
[2022-04-06 23:22] LABS: Troponin I < 0.03 ng/mL (< 0.04)
[2022-04-06] MEDS ORDERED: Iopamidol - 370 500 ML MLS IVP ONE (23:24)
[2022-04-06] MEDS ORDERED: 0.9 % Sodium Chloride 500 ML IVC ONE (23:24)
[2022-04-07 00:06] LABS: Influenza A PCR Negative (Negative); Influenza B PCR Negative (Negative); Resp. Syncytial Virus PCR Negative (Negative)
[2022-04-07 00:07] LABS: SARS-CoV-2 by PCR (In House) Negative (Negative)
[2022-04-07 00:35] LABS: Bacteria,Urine Few per hpf (None-Few); Bilirubin,Urine Negative (Negative); Blood,Urine Trace (Negative); Budding Yeast,Urine Many per hpf (None Seen); Clarity,Urine Turbid (Clear); Color,Urine Yellow (Yellow); Glucose,Urine (UA) Normal (Normal); Hyaline Casts,Urine Few per lpf (None Seen); Ketones,Urine Trace mg/dL (Negative); Leukocyte Esterase,Urine Trace (Negative); Mucus,Urine Few per lpf (None-Few); Nitrite,Urine Negative (Negative); PH,Urine 5.5 pH Units (5.0-8.0); Protein,Urine 30 mg/dL (Neg-Trace); Specific Gravity,Urine 1.025 (1.010-1.025); Squamous Epithelial Cell,Urine Few per hpf (None-Few); Urobilinogen,Urine Normal (Normal); WBC,Urine 15-30 per hpf (0-3)
[2022-04-07] MEDS ORDERED: cefTRIAXone 1,000 MG in Water for inj. (sterile) 10 ML IVP ONE ×2 (01:06→01:07)
[2022-04-07] MEDS ORDERED: Melatonin 3 MG TABLET PO PRN (01:35)
[2022-04-07] MEDS ORDERED: Naloxone 0.4 MG/ML INJ IVP PRN (01:35)
[2022-04-07] MEDS ORDERED: Ondansetron ODT 4 MG TAB.RAPDIS SL PRN (01:35)
[2022-04-07] MEDS ORDERED: Dextrose Gel 15 GM/37.5 ML TUBE PO PRN ×2 (01:43)
[2022-04-07] MEDS ORDERED: *HR* Dextrose 50 % in Water (Syg) 50 ML SYRINGE IVP PRN (01:43)
[2022-04-07] MEDS ORDERED: D5% in Water 1,000 ML IVC PRN (01:43)
[2022-04-07] MEDS: Ipratropium/Albuterol Neb 3 ML IH PRN (01:48)
[2022-04-07 01:51] LABS: ABG Base Excess -3 mEq/L (-2 to 3); ABG HCO3 24 mEq/L (21-27); ABG Oxygen Saturation 94 % (95-98); ABG PCO2 47 mmHg (35-45); ABG PH 7.31 pH Units (7.32-7.45); ABG PO2 80 mmHg (85-104); ABG TCO2 25 mEq/L (20-26)
[2022-04-07] MEDS ORDERED: Azithromycin 250 MG TABLET PO ONE (03:56)
[2022-04-07] MEDS ORDERED: Ipratropium/Albuterol Neb 3 ML IH SCH (04:00)
[2022-04-07] MEDS: Ipratropium Neb 0.5 MG NEBULIZER IH SCH ×4 (04:52→21:46)
[2022-04-07] MEDS: Levalbuterol Neb 1.25 MG/3 ML IH SCH ×4 (04:52→21:46)
[2022-04-07 05:12] LABS: Basophils % 0.2 %; Eosinophils % 0.1 %; Hematocrit 38.7 % (35.3-44.9); Hemoglobin 11.8 g/dL (11.5-15.4); Immature Granulocytes % 0.5 % (0-4); Lymphocytes # 0.3 K/mcL (0.6-4.6); Lymphocytes % 2.6 %; Mean Corpuscular HGB Conc 30.5 g/dL (31.6-35.5); Mean Corpuscular Hemoglobin 29.1 pg (28.0-33.3); Mean Corpuscular Volume 95.3 fL (83.0-100.0); Mean Platelet Volume 11.7 fL (9.4-12.4); Monocytes # 0.1 K/mcL (0.0-1.3); Monocytes % 0.6 %; Neutrophils # 12.6 K/mcL (1.6-8.9); Platelet Count 191 K/mcL (140-400); Red Blood Count 4.06 M/mcL (3.82-4.97); Red Cell Distribution Width 14.6 % (11.5-14.5); White Blood Count 13.1 K/mcL (4.3-11.1)
[2022-04-07 05:33] LABS: Alanine Aminotransferase 14 Units/L (7-52); Albumin 4.3 g/dL (3.5-5.7); Albumin/Globulin Ratio 1.3 (1.1-2.2); Alkaline Phosphatase 79 Units/L (34-104); Aspartate Amino Transferase 12 Units/L (13-39); BUN/Creatinine Ratio 36 (6-26); Bilirubin,Total 0.4 mg/dL (0.3-1.0); Blood Urea Nitrogen 25 mg/dL (8-23); Calcium 9.6 mg/dL (8.6-10.3); Carbon Dioxide 24 mEq/L (23-29); Chloride 102 mEq/L (98-107); Globulin 3.2 g/dL (2.4-3.5); Glucose 181 mg/dL (70-105); Magnesium 1.8 mg/dL (1.6-2.6); Osmolality,Calculated 291 (280-300); Phosphorous 3.9 mg/dL (2.7-4.5); Potassium 4.7 mEq/L (3.5-5.1); Sodium 136 mEq/L (136-145); Total Protein 7.5 g/dL (6.4-8.9)
[2022-04-07 05:46] LABS: Thyroid Stimulating Hormone 1.331 mcIU/mL (0.340-5.600)
[2022-04-07] MEDS: *HR* Heparin 5,000 UNIT/ML VIAL SQ SCH ×2 (06:12→17:38)
[2022-04-07] MEDS ORDERED: MethylPREDNISolone 40 MG/ML VIAL IVP SCH ×2 (08:00→18:00)
[2022-04-07] MEDS: Insulin LISPRO 300 UNITS/3 ML VIAL SUBQ SCH ×4 (09:42→20:54)
[2022-04-07] MEDS: Budesonide/Formoterol 160/4.5 1 PUFF INH IH SCH ×2 (10:32→21:47)
[2022-04-07] MEDS: Gabapentin 300 MG CAPSULE PO SCH ×2 (16:23→20:50)
[2022-04-07] MEDS ORDERED: Acetaminophen 325 MG TABLET PO PRN (16:47)
[2022-04-07] MEDS: hydrOXYzine pamoate 25 MG CAPSULE PO SCH (20:50)
[2022-04-07] MEDS ORDERED: NON-FORMULARY MEDICATION 1 EACH EACH (Atorvastatin Calcium [Lipitor] 80 MG Tablet) PO SCH (21:00)
[2022-04-08 01:14] LABS: A.calcoaceticus-baumannii cplx Not Detected (Not Detect); Bacteroides fragilis by PCR Not Detected (Not Detect); Candida albicans by PCR Not Detected (Not Detect); Candida auris by PCR Not Detected (Not Detect); Candida glabrata by PCR Not Detected (Not Detect); Candida krusei by PCR Not Detected (Not Detect); Candida parapsilosis by PCR Not Detected (Not Detect); Candida tropicalis by PCR Not Detected (Not Detect); Crypto. neoformans/gattii PCR Not Detected (Not Detect); Enterobacter cloacae Cmplx PCR Not Detected (Not Detect); Enterobacterales by PCR Not Detected (Not Detect); Enterococcus faecalis by PCR Not Detected (Not Detect); Enterococcus faecium by PCR Not Detected (Not Detect); Escherichia coli by PCR Not Detected (Not Detect); Klebs. pneumoniae group by PCR Not Detected (Not Detect); Klebsiella aerogenes by PCR Not Detected (Not Detect); Klebsiella oxytoca by PCR Not Detected (Not Detect); Proteus by PCR Not Detected (Not Detect); Pseudomonas aeruginosa by PCR Not Detected (Not Detect); Salmonella species by PCR Not Detected (Not Detect); Serratia marcescens by PCR Not Detected (Not Detect); Staph epidermidis by PCR Not Detected (Not Detect); Staph lugdunensis by PCR Not Detected (Not Detect); Staphylococcus aureus by PCR Not Detected (Not Detect); Staphylococcus by PCR DETECTED (Not Detect); Stenotrophomonas maltophilia Not Detected (Not Detect); Streptococcus agalactiae(B)PCR Not Detected (Not Detect); Streptococcus by PCR Not Detected (Not Detect); Streptococcus pneumoniae PCR Not Detected (Not Detect); Streptococcus pyogenes (A) PCR Not Detected (Not Detect)
[2022-04-08 01:52] LABS: Hematocrit 35.8 % (35.3-44.9); Hemoglobin 10.9 g/dL (11.5-15.4); Immature Granulocytes % 0.6 % (0-4); Lymphocytes # 0.5 K/mcL (0.6-4.6); Lymphocytes % 6.5 %; Mean Corpuscular HGB Conc 30.4 g/dL (31.6-35.5); Mean Corpuscular Hemoglobin 28.8 pg (28.0-33.3); Mean Corpuscular Volume 94.7 fL (83.0-100.0); Mean Platelet Volume 11.9 fL (9.4-12.4); Monocytes # 0.2 K/mcL (0.0-1.3); Monocytes % 2.2 %; Neutrophils # 7.1 K/mcL (1.6-8.9); Platelet Count 187 K/mcL (140-400); Red Blood Count 3.78 M/mcL (3.82-4.97); Red Cell Distribution Width 14.6 % (11.5-14.5); Segmented Neutrophils % 90.7 %; White Blood Count 7.9 K/mcL (4.3-11.1)
[2022-04-08 01:57] LABS: Calcium 9.5 mg/dL (8.6-10.3); Potassium 4.8 mEq/L (3.5-5.1)
[2022-04-08] MEDS: Ipratropium Neb 0.5 MG NEBULIZER IH SCH ×4 (04:46→22:19)
[2022-04-08] MEDS: Levalbuterol Neb 1.25 MG/3 ML IH SCH ×4 (04:46→22:19)
[2022-04-08] MEDS: *HR* Heparin 5,000 UNIT/ML VIAL SQ SCH ×2 (06:20→16:41)
[2022-04-08] MEDS: MethylPREDNISolone 40 MG/ML VIAL IVP SCH ×2 (06:21→16:41)
[2022-04-08] MEDS: Insulin LISPRO 300 UNITS/3 ML VIAL SUBQ SCH ×4 (07:56→21:04)
[2022-04-08] MEDS: cefTRIAXone 2,000 MG in Water for inj. (sterile) 20 ML IVP SCH (09:10)
[2022-04-08] MEDS: Gabapentin 300 MG CAPSULE PO SCH ×3 (09:17→21:03)
[2022-04-08] MEDS: Azithromycin 250 MG TABLET PO SCH (09:17)
[2022-04-08] MEDS: Budesonide/Formoterol 160/4.5 1 PUFF INH IH SCH ×2 (10:26→22:25)
[2022-04-08] MEDS: hydrOXYzine pamoate 25 MG CAPSULE PO SCH (21:03)
[2022-04-08 21:24] LABS: Adenovirus Not Detected (Not Detect); Bordetella Pertussis Not Detected (Not Detect); Chlamydophila pneumoniae Not Detected (Not Detect); Coronavirus 229E Not Detected (Not Detect); Coronavirus HKU1 Not Detected (Not Detect); Coronavirus NL63 Not Detected (Not Detect); Coronavirus OC43 Not Detected (Not Detect); Human Metapneumovirus Not Detected (Not Detect); Human Rhinovirus/Enterovirus DETECTED (Not Detect); Influenza A Subtype 2009 H1 Not Detected (Not Detect); Influenza B Not Detected (Not Detect); Mycoplasma pneumoniae Not Detected (Not Detect); Parainfluenza Virus 1 Not Detected (Not Detect); Parainfluenza Virus 2 Not Detected (Not Detect); Parainfluenza Virus 3 Not Detected (Not Detect); Parainfluenza Virus 4 Not Detected (Not Detect); Respiratory Syncytial Virus Not Detected (Not Detect); SARS-CoV-2 Not Detected (Not Detect)
[2022-04-09] MEDS: Ipratropium Neb 0.5 MG NEBULIZER IH SCH ×4 (03:47→23:15)
[2022-04-09] MEDS: Levalbuterol Neb 1.25 MG/3 ML IH SCH ×4 (03:47→23:15)
[2022-04-09 05:59] LABS: Basophils % 0.3 %; Eosinophils % 0.3 %; Hematocrit 35.8 % (35.3-44.9); Hemoglobin 10.9 g/dL (11.5-15.4); Immature Granulocytes % 0.6 % (0-4); Lymphocytes # 1.3 K/mcL (0.6-4.6); Lymphocytes % 16.2 %; Mean Corpuscular HGB Conc 30.4 g/dL (31.6-35.5); Mean Corpuscular Hemoglobin 29.1 pg (28.0-33.3); Mean Corpuscular Volume 95.7 fL (83.0-100.0); Monocytes # 0.4 K/mcL (0.0-1.3); Monocytes % 5.4 %; Neutrophils # 6.1 K/mcL (1.6-8.9); Platelet Count 201 K/mcL (140-400); Red Blood Count 3.74 M/mcL (3.82-4.97); Red Cell Distribution Width 14.7 % (11.5-14.5); Segmented Neutrophils % 77.2 %; White Blood Count 7.9 K/mcL (4.3-11.1)
[2022-04-09] MEDS: MethylPREDNISolone 40 MG/ML VIAL IVP SCH ×2 (06:17→17:18)
[2022-04-09] MEDS: *HR* Heparin 5,000 UNIT/ML VIAL SQ SCH ×2 (06:17→17:19)
[2022-04-09 06:21] LABS: Calcium 9.6 mg/dL (8.6-10.3); Potassium 4.7 mEq/L (3.5-5.1)
[2022-04-09] MEDS: Insulin LISPRO 300 UNITS/3 ML VIAL SUBQ SCH ×3 (08:34→17:20)
[2022-04-09] MEDS: Gabapentin 300 MG CAPSULE PO SCH ×3 (09:18→19:37)
[2022-04-09] MEDS: cefTRIAXone 2,000 MG in Water for inj. (sterile) 20 ML IVP SCH (09:19)
[2022-04-09] MEDS: Azithromycin 250 MG TABLET PO SCH (09:19)
[2022-04-09] MEDS: Budesonide/Formoterol 160/4.5 1 PUFF INH IH SCH ×2 (10:18→23:15)
[2022-04-09] MEDS: hydrOXYzine pamoate 25 MG CAPSULE PO SCH (19:38)
[2022-04-10] MEDS: Insulin LISPRO 300 UNITS/3 ML VIAL SUBQ SCH ×3 (00:19→12:33)
[2022-04-10] MEDS: Ipratropium Neb 0.5 MG NEBULIZER IH SCH ×2 (04:02→10:23)
[2022-04-10] MEDS: Levalbuterol Neb 1.25 MG/3 ML IH SCH ×2 (04:02→10:23)
[2022-04-10] MEDS: *HR* Heparin 5,000 UNIT/ML VIAL SQ SCH (05:05)
[2022-04-10] MEDS: MethylPREDNISolone 40 MG/ML VIAL IVP SCH (05:21)
[2022-04-10] MEDS: Budesonide/Formoterol 160/4.5 1 PUFF INH IH SCH (10:23)
[2022-04-10] MEDS: cefTRIAXone 2,000 MG in Water for inj. (sterile) 20 ML IVP SCH (10:35)
[2022-04-10] MEDS: Gabapentin 300 MG CAPSULE PO SCH (10:36)
[2022-04-10] MEDS: Azithromycin 250 MG TABLET PO SCH (10:36)
[2022-04-10 10:50] VITALS: BP 143/58; PULSE 82; TEMP 97.7
[2022-04-10 12:55] VITALS: O2SAT 96
== END 2022-04-10 14:54 | disposition home or self-care (01) | DRG 190 ==
LOC: EMEROOARM 22:03 → 3ANU 22:03
PROVIDERS: ADMIT Internal Medicine; ATTEND Internal Medicine